=== PATIENT | female | born 1980 | race Caucasian/White ===

== ENCOUNTER → 2017-03-12 | Outpatient (REF) | payer OTHER | LOC: M LAB REF 09:14 | PROVIDERS: ATTEND Physician Assistant | DX: R30.0 Dysuria (principal) ==

== ENCOUNTER → 2018-05-08 | Outpatient (CLI) | payer OTHER | LOC: M RAD 16:29 | DX: R10.32 Left lower quadrant pain (principal) | CPT/HCPCS: 76856 ==

== ENCOUNTER 2019-03-29 15:00 | Emergency (ER) | payer OTHER ==
[~2019-03-29] VITALS: Ht 157.5 cm; Wt 70.0 kg
[2019-03-29] MEDS ORDERED: LISI10TA4 PO (15:11)
[2019-03-29] MEDS ORDERED: XANA0.5T PO (15:11)
[2019-03-29] MEDS ORDERED: PANT40TA3 PO (15:11)
[2019-03-29 15:35] LABS: BASO % 0.5 % (0.0-1.0); EOS % 0.7 % (0.0-3.0); HEMATOCRIT 39.9 % (36.0-47.0); HEMOGLOBIN 13.7 g/dl (12.0-15.5); LYMPH # 1.4 10^3/uL (1.5-4.5); LYMPH % 22.4 % (24.0-44.0); MEAN CORPUSCULAR HEMOGLOBIN 33.3 pg (27.0-33.0); MEAN CORPUSCULAR HGB CONC 34.3 g/dl (32.0-36.5); MEAN CORPUSCULAR VOLUME 96.8 fl (80.0-96.0); MONO # 0.4 10^3/uL (0.0-0.8); MONO % 6.5 % (0.0-5.0); NEUTROPHILS # 4.2 10^3/uL (1.8-7.7); NEUTROPHILS % 69.7 % (36.0-66.0); PLATELET COUNT, AUTOMATED 152 10^3/uL (150-450); RED BLOOD COUNT 4.12 10^6/uL (4.00-5.40)
[2019-03-29 16:01] LABS: HCG, SERUM QUALITATIVE NEGATIVE (NEGATIVE)
[2019-03-29 16:03] LABS: ALBUMIN 4.1 GM/DL (3.2-5.2); ALT/SGPT 35 U/L (12-78); BILIRUBIN,DIRECT 0.2 MG/DL (0.0-0.2); BILIRUBIN,TOTAL 0.7 MG/DL (0.2-1.0); BLOOD UREA NITROGEN 13 MG/DL (7-18); CALCIUM LEVEL 8.8 MG/DL (8.5-10.1); CARBON DIOXIDE LEVEL 25 MEQ/L (21-32); CHLORIDE LEVEL 106 MEQ/L (98-107); CREATININE FOR GFR 0.79 MG/DL (0.55-1.30); GLOMERULAR FILTRATION RATE > 60.0 (>60); GLUCOSE, FASTING 103 MG/DL (70-100); LIPASE 70 U/L (73-393); POTASSIUM SERUM 3.6 MEQ/L (3.5-5.1); SODIUM LEVEL 140 MEQ/L (136-145); TOTAL PROTEIN 7.1 GM/DL (6.4-8.2)
--- NOTE | 2019-03-29 16:43 | REP ---
Chest x-ray: Two views. History: Palpitations . Comparison study: August 24, 2015 . Findings: The lungs are well inflated and free of infiltrate. The pleural angles are sharp. The heart size is normal. Pulmonary vasculature is not increased. No significant bony abnormality is seen. EKG monitoring electrodes are seen. Impression: Negative chest x-ray. Electronically Signed by Herman Persaud MD 03/29/2019 04:35 P
[2019-03-29] MEDS ORDERED: 24Hr Holter Monitor XX (16:59)
[2019-03-29 17:00] VITALS: BP 125/71
--- NOTE | 2019-03-29 17:18 | ECGEPIP ---
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
== END 2019-03-29 17:20 | disposition home or self-care (01) ==
LOC: M ED 15:00
DX: R00.2 Palpitations (principal); K21.9 Gastro-esophageal reflux disease without esophagitis; F41.9 Anxiety disorder, unspecified; I10 Essential (primary) hypertension; Z79.899 Other long term (current) drug therapy

== ENCOUNTER → 2019-03-31 | Outpatient (CLI) | payer OTHER ==
[~2019-03-31] MED LIST: 24Hr Holter Monitor XX; LISI10TA4 PO; PANT40TA3 PO; XANA0.5T PO
--- NOTE | 2019-04-04 18:43 | HOLTMON ---
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 22 HOURS AND 30 MINUTES WERE USABLE FOR ANALYSIS. BASELINE MECHANISM WAS SR WITH NORMAL AV CONDUCTION AND NARROW QRS COMPLEX. MINIMUM HR WAS 50 BPM, AVERAGE HR 79 BPM AND MAXIMUM HR 140 BPM. THERE WERE NO PAUSES, NO EPISODES OF ATRIAL FIBRILLATION AND NO PVC'S. VERY RARE PAC'S INCLUDING BRIEF RUNS OF SLOW ATRIAL RHYTHM WERE SEEN (MAX. 6 BEATS). PATIENT REPORTED 3 EPISODES OF PALPITATIONS ALL CORRESPONDING TO SINUS RHYTHM. NORMAL HOLTER MONITOR. NO CORRELATION OF SYMPTOMS WITH ARRHYTHMIAS. Electronically Signed On 04-04-2019 18:43:51 EDT by Radha Hillman
== END ==
LOC: M EKG 13:19
PROVIDERS: ATTEND Emergency Medicine
DX: R00.2 Palpitations (principal)

== ENCOUNTER → 2019-05-28 | Outpatient (REF) | payer OTHER ==
[~2019-05-28] MED LIST changes: +LOW-1TAB2 PO
[2019-05-31 00:07] LABS: HPV HYBRID CAPTURE II Negative (Negative)
== END ==
LOC: M SFHCWAGY 15:29
PROVIDERS: ATTEND Nurse Practitioner Women's Health
DX: Z12.4 Encounter for screening for malignant neoplasm of cervix (principal); Z11.4 Encounter for screening for human immunodeficiency virus [HIV]

== ENCOUNTER 2019-08-04 13:01 | Day surgery (SDC) | payer OTHER ==
[~2019-08-04] VITALS: Ht 154.9 cm; Wt 68.0 kg
[~2019-08-04 13:01] MED LIST changes: +NS 1,000 ML IV ONE; +RANI150T PO
[2019-08-04] MEDS ORDERED: LIDOCAINE 2% INJ 100 MG/5 ML SDV (FOR ANES.) As Ordered ONE (14:22)
[2019-08-04] MEDS ORDERED: PROPOFOL 200 MG/20 ML VIAL As Ordered ONE (14:22)
--- NOTE | 2019-08-04 15:51 | ROOR ---
Patient Name: Lidia Watters Procedure Date: 08/04/2019 3:28 PM Date of : 1980 Age: 39 Room: [facility] Gender: Female Note Status: Finalized Procedure: Upper GI endoscopy Indications: Suspected gastro-esophageal reflux disease, Chest pain (non cardiac) Providers: Aneesh Torrez MD Referring MD: Michelle ARREAGA DO Requesting Provider: Medicines: Monitored Anesthesia Care Complications: No immediate complications. Procedure: Pre-Anesthesia Assessment: - Prior to the procedure, a History and Physical was performed, and patient medications and allergies were reviewed. The patient is competent. The risks and benefits of the procedure and the sedation options and risks were discussed with the patient. All questions were answered and informed consent was obtained. Patient identification and proposed procedure were verified by the physician, the nurse and the anesthesiologist in the procedure room. Mental Status Examination: alert and oriented. Airway Examination: normal oropharyngeal airway and neck mobility. Respiratory Examination: clear to auscultation. CV Examination: normal. Prophylactic Antibiotics: The patient does not require prophylactic antibiotics. Prior Anticoagulants: The patient has taken no previous anticoagulant or antiplatelet agents. ASA Grade Assessment: II - A patient with mild systemic disease. After reviewing the risks and benefits, the patient was deemed in satisfactory condition to undergo the procedure. The anesthesia plan was to use monitored anesthesia care (MAC). Immediately prior to administration of medications, the patient was re-assessed for adequacy to receive sedatives. The heart rate, respiratory rate, oxygen saturations, blood pressure, adequacy of pulmonary ventilation, and response to care were monitored throughout the procedure. The physical status of the patient was re-assessed after the procedure. The Endoscope was introduced through the mouth, and advanced to the second part of duodenum. The upper GI endoscopy was accomplished without difficulty. The patient tolerated the procedure well. Findings: The Z-line was irregular and was found 37 cm from the incisors. Biopsies were taken with a cold forceps for histology. Verification of patient identification for the specimen was done by the physician and nurse using the patient's name, date and medical record number. Estimated blood loss was minimal. There is no endoscopic evidence of esophagitis, inflammation or ulcerations in the entire esophagus. The [place] GARZA capsule with delivery system was introduced through the mouth and advanced into the esophagus, such that the [place]ZA pH capsule was positioned 31 cm from the incisors, which was 6 cm proximal to the GE junction. Suction was applied to the well of the [place] G[place]ZA pH capsule to suck in the adjacent mucosa of the esophagus using the external vacuum pump set at a minimum vacuum pressure of 550 mmHg for 30 seconds. The [place]ZA pH capsule was then deployed by depressing the plunger on top of the handle to advance the locking pin into the mucosa, thereby attaching the capsule to the esophagus. The plunger was then rotated a quarter turn clockwise to release the capsule from the delivery system. The delivery system was then withdrawn. Endoscopy was utilized for probe placement and diagnostic evaluation. The scope was reinserted to evaluate placement of the [place] capsule. Visualization showed the [place] GARZA capsule to be in an appropriate position. Scattered minimal inflammation characterized by erythema and granularity was found in the gastric antrum. Biopsies were taken with a cold forceps for Helicobacter pylori testing. The duodenal bulb and second portion of the duodenum were normal. Impression: - Z-line irregular, 37 cm from the incisors. Biopsied. - Gastritis. Biopsied. - Normal duodenal bulb and second portion of the duodenum. - The [place] GARZA pH capsule was positioned 31 cm from the incisors, which was 6 cm proximal to the GE junction. Recommendation: - Patient has a contact number available for emergencies. The signs and symptoms of potential delayed complications were discussed with the patient. Return to normal activities tomorrow. Written discharge instructions were provided to the patient. - Resume previous diet. - Await pathology results. - Follow an antireflux regimen. - Telephone GI clinic for study results in 2 weeks. - Return to primary care physician. Aneesh Torrez MD Aneesh Torrez MD 08/04/2019 3:51:18 PM Electronically signed by Aneesh Torrez MD Number of Addenda: 0 Note Initiated On: 08/04/2019 3:28 PM Estimated Blood Loss: Estimated blood loss was minimal.
[2019-08-04 16:10] VITALS: BP 126/76
== END 2019-08-04 16:32 | disposition home or self-care (01) ==
LOC: M OPP 13:01
PROVIDERS: ATTEND Internal Medicine Gastroenterology
DX: K22.8 Other specified diseases of esophagus (principal); K29.70 Gastritis, unspecified, without bleeding; R07.89 Other chest pain; Z79.899 Other long term (current) drug therapy

== ENCOUNTER → 2019-12-29 | Outpatient (REF) | payer OTHER ==
[~2019-12-29] MED LIST changes: -NS 1,000 ML IV ONE
[2019-12-29 15:29] LABS: BASO % 0.3 % (0.0-1.0); EOS # 0.1 10^3/uL (0.0-0.5); EOS % 0.9 % (0.0-3.0); HEMATOCRIT 42.9 % (36.0-47.0); HEMOGLOBIN 13.8 g/dl (12.0-15.5); LYMPH # 1.5 10^3/uL (1.5-5.0); LYMPH % 22.9 % (24.0-44.0); MEAN CORPUSCULAR HEMOGLOBIN 29.6 pg (27.0-33.0); MEAN CORPUSCULAR HGB CONC 32.2 g/dl (32.0-36.5); MEAN CORPUSCULAR VOLUME 91.9 fl (80.0-96.0); MONO # 0.4 10^3/uL (0.0-0.8); MONO % 5.3 % (0.0-5.0); NEUTROPHILS # 4.6 10^3/uL (1.5-8.5); NEUTROPHILS % 70.3 % (36.0-66.0); PLATELET COUNT, AUTOMATED 204 10^3/uL (150-450); RED BLOOD COUNT 4.67 10^6/uL (4.00-5.40); WHITE BLOOD COUNT 6.6 10^3/uL (4.0-10.0)
[2019-12-29 16:03] LABS: ALBUMIN 4.1 GM/DL (3.2-5.2); ALT/SGPT 20 U/L (12-78); BILIRUBIN,DIRECT 0.1 MG/DL (0.0-0.2); BILIRUBIN,TOTAL 0.5 MG/DL (0.2-1.0); BLOOD UREA NITROGEN 11 MG/DL (7-18); CALCIUM LEVEL 9.6 MG/DL (8.5-10.1); CARBON DIOXIDE LEVEL 30 MEQ/L (21-32); CHLORIDE LEVEL 100 MEQ/L (98-107); CREATININE FOR GFR 0.73 MG/DL (0.55-1.30); GLOMERULAR FILTRATION RATE > 60.0 (>60); GLUCOSE, FASTING 79 MG/DL (70-100); LIPASE 55 U/L (73-393); POTASSIUM SERUM 4.4 MEQ/L (3.5-5.1); SODIUM LEVEL 137 MEQ/L (136-145); TOTAL PROTEIN 7.4 GM/DL (6.4-8.2)
== END ==
LOC: M LABDRAW1 13:49
PROVIDERS: ATTEND Physician Assistant
DX: A08.39 Other viral enteritis (principal)

== ENCOUNTER → 2020-04-28 | Outpatient (CLI) | payer OTHER ==
--- NOTE | 2020-04-28 14:40 | REP ---
MRI brain: April 28, 2020. Indication: Headache. Technique: Multiplanar short and long TR sequences of the brain were performed without IV Gadolinium. Comparison: 08/18/2013. Findings: There are no areas of restricted diffusion. There is no intracranial mass effect or hydrocephalous. The large intracranial flow voids are present and unremarkable. The punctate foci of elevated T2 signal within the frontal lobes remain stable. There is no significant fluid within the paranasal sinuses or mastoid air cells. Impression: No acute intracranial process. Stable punctate nonspecific foci of elevated frontal lobe white matter T2 signal. Considering history, these likely represent sequelae of migraines. Electronically Signed by Darrin Patterson DO 04/28/2020 02:31 P
--- NOTE | 2020-04-28 14:53 | REP ---
Intracranial MRA: 04/28/2020. Indication: Headaches. Technique: 3-D [id number] imaging of the intracranial vessels were performed. Comparison: None. Findings: There is no intracranial aneurysm, AVM, high-grade stenosis or additional intracranial vascular abnormalities. Incidental note is made of an anatomic variant involving the origin of the right ACCESS NURSE. Impression: Unremarkable intracranial MRA. Electronically Signed by Darrin Patterson DO 04/28/2020 02:44 P
== END ==
LOC: M RAD 12:26
PROVIDERS: ATTEND Physician Assistant
DX: R51 Headache (principal)

== ENCOUNTER → 2020-12-13 | Outpatient (CLI) | payer OTHER ==
[~2020-12-13] MED LIST changes: +LISI10TA22 PO; -LISI10TA4 PO; +PANT40TA29 PO; -PANT40TA3 PO
[2020-12-13 12:28] LABS: BASO % 0.5 % (0.0-1.0); EOS # 0.1 10^3/uL (0.0-0.5); EOS % 1.3 % (0.0-3.0); HEMATOCRIT 41.3 % (36.0-47.0); HEMOGLOBIN 13.8 g/dl (12.0-15.5); LYMPH # 1.7 10^3/uL (1.5-5.0); LYMPH % 30.5 % (24.0-44.0); MEAN CORPUSCULAR HEMOGLOBIN 30.5 pg (27.0-33.0); MEAN CORPUSCULAR HGB CONC 33.4 g/dl (32.0-36.5); MEAN CORPUSCULAR VOLUME 91.2 fl (80.0-96.0); MONO # 0.3 10^3/uL (0.0-0.8); MONO % 6.1 % (0.0-5.0); NEUTROPHILS # 3.4 10^3/uL (1.5-8.5); NEUTROPHILS % 61.4 % (36.0-66.0); PLATELET COUNT, AUTOMATED 199 10^3/uL (150-450); RED BLOOD COUNT 4.53 10^6/uL (4.00-5.40); WHITE BLOOD COUNT 5.6 10^3/uL (4.0-10.0)
[2020-12-13 12:53] LABS: ALBUMIN 4.2 GM/DL (3.2-5.2); ALT/SGPT 20 U/L (12-78); BILIRUBIN,DIRECT < 0.1 MG/DL (0.0-0.2); BILIRUBIN,TOTAL 0.3 MG/DL (0.2-1.0); BLOOD UREA NITROGEN 11 MG/DL (7-18); CREATININE FOR GFR 0.68 MG/DL (0.55-1.30); GLOMERULAR FILTRATION RATE > 60.0 (>60); TOTAL PROTEIN 7.4 GM/DL (6.4-8.2)
== END ==
LOC: M LAB 11:48
PROVIDERS: ATTEND Internal Medicine Gastroenterology
DX: R10.13 Epigastric pain (principal)

== ENCOUNTER → 2020-12-27 | Outpatient (CLI) | payer OTHER ==
--- NOTE | 2020-12-27 14:13 | REP ---
INDICATION: EPIGASTRIC PAIN COMPARISON: 02/08/2015 TECHNIQUE: Real time hill scale ultrasound examination using curved array transducer. FINDINGS: Liver is normal in contour, size, and echogenicity without focal hepatic lesions identified. Pancreas is incompletely evaluated due to interposed bowel gas. The gallbladder is normal and without gallstones, wall thickening, or pericholecystic fluid. No biliary ductal dilatation is appreciated and the common bile duct measures 4.6 mm diameter. Right kidney is normal in reniform shape without hydronephrosis and measures 11.1 x 4.1 x 3.5 cm cm. No ascites in the visualized right upper quadrant. IMPRESSION: Normal limited right upper quadrant ultrasound <Electronically signed by Gabriel Magana > 12/27/20 [id number]
== END ==
LOC: M RAD 08:02
PROVIDERS: ATTEND Internal Medicine Gastroenterology
DX: R10.13 Epigastric pain (principal)

== ENCOUNTER → 2020-12-29 | Outpatient (CLI) | payer OTHER | LOC: M LABSMTC 10:00 | PROVIDERS: ATTEND Anesthesiology | DX: Z20.828 Contact with and (suspected) exposure to other viral communicable diseases (principal) ==

== ENCOUNTER 2021-01-03 09:59 | Day surgery (SDC) | payer OTHER ==
[~2021-01-03] VITALS: Ht 154.9 cm; Wt 72.5 kg
[~2021-01-03 09:59] MED LIST changes: +NS 1,000 ML IV ONE
--- OUTSIDE RECORDS SUMMARY | 2021-01-03 10:02 | CCD | Continuity of Care Document ---
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 AUTM Shea Vergara NP AUTM [phone] Jose D Ruiz MD AUTM [phone] Problems Active Problems Provider Date Gastro-esophageal reflux disease with esophagitis LOYDA Georges Onset: 08/18/2019 Essential hypertension LOYDA Lira Onset: 08/18/2019 Generalized anxiety disorder LOYDA Lira Onset: 07/22 Social History Type Date Description Comments Sex Unknown ETOH Use Denies alcohol use Tobacco Use Start: Unknown End: Patient is a former smoker Recreational Drug Use Denies Drug Use Sun Exposure Uses sunscreen Seat Belt/Car Seat Always uses seat belt Allergies, Adverse Reactions, Alerts Description No Known Drug Allergies Medications Active Medications SIG Qnty Indications Ordering Provide r Date Lisinopril 10mg Tablets take one tablet by mouth every day 90tabs Michelle Roberto D.O. 09/17 Blood Pressure Monitor Auto Inflate Misc use as directed 1units I10 Eric Miller 09/06/[address] 1 by mouth every day 90caps K21.00 Michelle Roberto D.O. 09/06 Betamethasone Dipropionate 0.05% C ream apply liquid to clean, dry, on scalp in the morning for 10 days and as needed for flares 45gm L20.84 Michelle Roberto D.O. 08/03 Nystatin 424621Nowp/GM Powder apply to chest area twice a day until rash resolves 60gm Dulce Maria MillerOTejas 06/23/2020 Triamcinolone Acetonide 0.1% Cream apply least effective dosage to affected area of chest twice a day 80gm Dulce Maria MillerOTejas 06/07/2020 Carafate 1gm Tablets one tablet by mouth every 8 hours 90tabs K21.0 Dulce Maria MillerO. 06/01 Zofran 4mg Tablets 1-2 tablets by mouth every 6 hours as needed for nausea 45tabs A08.39 Sarahy Cartagena.O. 12/29/2019 Alprazolam 0.25mg Tablets take one tablet by mouth twice a day istop # [id number] 60tabs F41.1 Sarahy Soler.O. Low-Ogestrel 0.3-30mg-mcg Tablets Take One Tablet By Mouth Every Day Unknown History Medications Labetalol HCL 100mg Tablets take one tablet by mouth twice a day 180tabs I10 Sarahy Miller.O. 09/13/2020 - 09/17/2020 Immunizations Description No Information Available Vital Signs Date Vital Result Comment 09/13/2020 11:24am BP Systolic 132 mmHg BP Diastolic 82 mmHg Height 60.8 inches 5'0.80" Weight 163.00 lb BMI (Body Mass Index) 31.0 kg/m2 Heart Rate 76 /min Respiratory Rate 16 /min Body Temperature 98.5 F O2 % BldC Oximetry 98 % [place] Body Weight 100 lb 09/06/2020 1:10pm BP Systolic 115 mmHg BP Diastolic 70 mmHg Height 60.8 inches 5'0.80" Weight 163.50 lb BMI (Body Mass Index) 31.1 kg/m2 Heart Rate 86 /min Respiratory Rate 16 /min Body Temperature 98.3 F O2 % BldC Oximetry 99 % [place] Body Weight 100 lb Results Test Acquired Date Facility Test Result H/L Range Note CBC With Differential 12/13/2020 [facility] Outpatient Oneyda jeffers (Registration) [address] [place] [address] [phone] White Blood Count 5.6 10 Normal 4.0-10.0 Red Blood Count 4.53 10 Normal 4.00-5.40 Hemoglobin 13.8 g/dL Normal 12.0-15.5 Hematocrit 41.3 % Normal 36.0-47.0 Mean Corpuscular Volume 91.2 fl Normal 80.0-96.0 Mean Corpuscular Hemoglobin 30.5 pg Normal 27.0-33.0 Mean Corpuscular HGB Conc 33.4 g/dL Normal 32.0-36.5 Red Cell Distribution Width 12.2 % Normal 11.5-14.5 Platelet Count, Automated 199 10 Normal 150-450 Neutrophils % 61.4 % Normal 36.0-66.0 Lymph % 30.5 % Normal 24.0-44.0 [place] % 6.1 % High 0.0-5.0 Eos % 1.3 % Normal 0.0-3.0 Baso % 0.5 % Normal 0.0-1.0 Immature Granulocyte % 0.2 % Normal 0-3.0 Nucleated Red Blood Cell % 0.0 % Normal 0-0 Neutrophils # 3.4 10 Normal 1.5-8.5 Lymph # 1.7 10 Normal 1.5-5.0 [place] # 0.3 10 Normal 0.0-0.8 Eos # 0.1 10 Normal 0.0-0.5 Baso # 0.0 10 Normal 0.0-0.2 Liver Profile 12/13/2020 [facility] Outpatient Testi ng (Registration) [address] [place] [address] [phone] Ast/Sgot 8 U/L Normal 7-37 Alt/SGPT 20 U/L Normal 12-78 Alkaline Phosphatase 53 U/L Normal 45-117 Bilirubin,Total 0.3 mg/dL Normal 0.2-1.0 Bilirubin,Direct < 0.1 mg/dL Normal 0.0-0.2 Total Protein 7.4 GM/DL Normal 6.4-8.2 Albumin 4.2 GM/DL Normal 3.2-5.2 Albumin/Globulin Ratio 1.3 Normal 1.2-2.2 Laboratory test finding 12/13/2020 [facility] Outpatient T est[place] (Registration) [address] [place] [address] [phone] Blood Urea Nitrogen 11 mg/dL Normal 7-18 Creatinine With GFR 12/13/2020 [facility] Outpatient Testi ng (Registration) [address] [place], [place] [id number] [phone] Creatinine For GFR 0.68 mg/dL Normal 0.55-1.30 Glomerular Filtration Rate > 60.0 Normal >60 1 Laboratory test finding 12/13/2020 [facility] Outpatient [place] (Registration) [address] [place], [place] [id number] [phone] Tissue Transglutaminase IgA <2 U/mL Normal 0-3 2 Order 09/06/2020 In House Orders EKG see result in chart 1 Units are mL/min/1.73 m2 Chronic Kidney Disease Staging per NKF: Stage I & II GFR >=60 Normal to Mildly Decreased Stage III GFR 30-59 Moderately Decreased Stage IV GFR 15-29 Severely Decreased Stage V GFR <15 Very Little GFR Left ESRD GFR <15 on PHOTOGRAPHY SPOTTER 2 Negative 0 - 3 Weak Positive 4 - 10 Positive >10 . Tissue Transglutaminase (tTG) has been identified as the endomysial antigen. Studies have demonstr- ated that endomysial IgA antibodies have over 99% specificity for gluten sensitive enteropathy. Performed at: RN - [facility] [address] [id number] Surgical Assistant Certified: Jessica Lamar MD, Phone: [phone] Procedures Date Code Description Status 09/13/2020 11979 Wearable ECG Monitor/Report W/Vi sual Superimposition Scanning Completed 09/06/2020 86347 Electrocardiogram Complete Compl eted Medical Devices Description No Information Available Encounters Type Date Location Provider Dx Diagnosis Office Visit 09/13/2020 11:30a [facility] LOYDA Lira I10 Essential (primary) hyperten mansoor K21.00 Gastro-esophageal reflux dis with esophagitis, without bleed R00.0 Tachycardia, unspecified Office Visit 09/06/2020 1:15p [facility] LOYDA Lira R00.2 Palpitations I10 Essential (primary) hyperten mansoor K21.00 Gastro-esophageal reflux dis with esophagitis, without bleed F41.1 Generalized anxiety disorder Z79.899 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 burgos therapy Assessments Date Code Description Provider 09/13/2020 I10 Essential (primary) hypertension LOYDA Lira 09/13/2020 K21.00 Gastro-esophageal re flux disease with esophagitis, without bleeding LOYDA Lira 09/13/2020 R00.0 Tachycardia, unspecified LOYDA Lira 09/06/2020 R00.2 Palpitations LOYDA Lira 09/06/2020 I10 Essential (primary) hypertension LOYDA Lira 09/06/2020 K21.00 Gastro-esophageal re flux disease with esophagitis, without bleeding LOYDA Lira 09/06/2020 F41.1 Generalized anxiety disorder [facility] LOYDA Ingram 09/06/2020 Z79.899 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ug t herapy LOYDA Lira Plan of Treatment No Information Available Functional Status Description No Information Available Mental Status Description No Information Available Referrals Refer to Reason for Referral Status Appt Date Jose D Ruiz MD dry flaky psoriasis rash of scalp with difficulty getting appropriate medications approved. Please help in evaluation and treatment of this patient. Sent [address] [id number] [phone]
--- OUTSIDE RECORDS SUMMARY | 2021-01-03 10:03 | CCD ---
Author Author [facility] Organization [facility] Address Unknown Phone Unavailable Care Team Providers Care Street Sprinkler Name Role Phone Ann'jake, Cuate Cory PA Unavailable Unavailable O'jake, A Cory PA Unavailable Unavailable O'jake, A Cory PA Unavailable Unavailable O'jake, A Cory PA Unavailable Unavailable O'jake, A Cory PA Unavailable Unavailable O'jake, A Cory PA Unavailable Unavailable O'jake, A Cory PA Unavailable Unavailable O'jake, A Cory PA Unavailable Unavailable O'jake, A Cory PA Unavailable Unavailable O'jake, A Cory PA Unavailable Unavailable O'jake, A Cory PA Unavailable Unavailable O'jake, A Cory PA Unavailable Unavailable O'jake, A Cory PA Unavailable Unavailable O'jake, A Cory PA Unavailable Unavailable O'jake, A Cory PA Unavailable Unavailable O'jake, A Cory PA Unavailable Unavailable O'jake, A Cory PA Unavailable Unavailable O'jake, A Cory PA Unavailable Unavailable O'jake, A Cory PA Unavailable Unavailable O'jake, A Cory PA Unavailable Unavailable O'jake, A Cory PA Unavailable Unavailable O'jake, A Cory PA Unavailable Unavailable O'jake, A Cory PA Unavailable Unavailable O'jake, A Cory PA Unavailable Unavailable O', A Cory PA Unavailable Unavailable O', A Cory PA Unavailable Unavailable O', A Cory PA Unavailable Unavailable O', A Cory PA Unavailable Unavailable O', A Cory PA Unavailable Unavailable O, A Cory PA Unavailable Unavailable O', A Cory PA Unavailable Unavailable O', A Cory PA Unavailable Unavailable O', A Cory PA Unavailable Unavailable O', A Cory PA Unavailable Unavailable O', A Cory PA Unavailable Unavailable O', A Cory PA Unavailable Unavailable O', A Cory PA Unavailable Unavailable O', A Cory PA Unavailable Unavailable O', A Cory PA Unavailable Unavailable O', A Cory PA Unavailable Unavailable O, A Cory PA Unavailable Unavailable O, A Cory PA Unavailable Unavailable O, A Cory PA Unavailable Unavailable O, A Cory PA Unavailable Unavailable O, A Cory PA Unavailable Unavailable O, A Cory PA Unavailable Unavailable O, A Cory PA Unavailable Unavailable O, A Cory PA Unavailable Unavailable O, A Cory PA Unavailable Unavailable O, A Cory PA Unavailable Unavailable O', A Cory PA Unavailable Unavailable O, A Cory PA Unavailable Unavailable O, A Cory PA Unavailable Unavailable , A Cory PA Unavailable Unavailable O, A Cory PA Unavailable Unavailable O, A Cory PA Unavailable Unavailable O, A Cory PA Unavailable Unavailable O, A Cory PA Unavailable Unavailable O, A Cory PA Unavailable Unavailable O, A Cory PA Unavailable Unavailable O, A Cory PA Unavailable Unavailable O, A Cory PA Unavailable Unavailable O, A Cory PA Unavailable Unavailable O', A Cory PA Unavailable Unavailable O', A Cory PA Unavailable Unavailable O', A Cory PA Unavailable Unavailable Re-disclosure Warning The records that you are about to access may contain information from federally-assisted alcohol or drug abuse programs. If such information is present, then the following federally mandated warning applies: This information has been disclosed to you from records protected by federal confidentiality rules (42 CFR part 2). The federal rules prohibit you from making any further disclosure of this information unless further disclosure is expressly permitted by the written consent of the person to whom it pertains or as otherwise permitted by 42 CFR part 2. A general authorization for the release of medical or other information is NOT sufficient for this purpose. The Federal rules restrict any use of the information to criminally investigate or prosecute any alcohol or drug abuse patient.The records that you are about to access may contain highly sensitive health information, the redisclosure of which is protected by Article 27-F of the [facility] Public Health law. If you continue you may have access to information: Regarding HIV / AIDS; Provided by facilities licensed or operated by the [facility] Office of Mental Health; or Provided by the [facility] Office for People With Developmental Disabilities. If such information is present, then the following [facility] mandated warning applies: This information has been disclosed to you from confidential records which are protected by state law. State law prohibits you from making any further disclosure of this information without the specific written consent of the person to whom it pertains, or as otherwise permitted by law. Any unauthorized further disclosure in violation of state law may result in a fine or chcf sentence or both. A general authorization for the release of medical or other information is NOT sufficient authorization for further disc losure. Family History Family Member Name Family Member Gender Family Member Status Date o f Status Description Data Source(s) Unknown Male Problem [facility] ([facility] Unknown Female Problem [facility] ([facility] Unknown Female Problem [facility] ([facility], [facility]) Encounters Encounter Providers Location Date Indications Data Source(s ) Outpatient Attender: Cory SCALES [facility] 09/13/2020 11:30:00 AM EDT [facility] ([facility]) Outpatient Attender: Cory SCALES [facility] 09/06/2020 01:15:00 PM EDT [facility] ([facility]) Outpatient [address] [facility] [address] 08/23/2020 12:00:00 AM EDT eCW1 ([facility]) Outpatient Attender: Cory SCALES [facility] 06/01/2020 02:30:00 PM EDT [facility] ([facility]) Unknown [address] [facility] [address] 05/31/2020 12:00:00 AM EDT eCW1 ([facility]) Outpatient Referrer: Cory SCALES 05/14/2020 05:16:0 0 AM EDT [facility] Radiology Imaging Outpatient Attender: Cory SCALES [facility] 04/07/2020 04:00:00 PM EDT [facility] ([facility]) Outpatient Attender: Cory SCALES [facility] 12/29/2019 12:20:00 PM EST [facility] ([facility]) Outpatient Attender: Cory SCALES [facility] 12/16/2019 12:20:00 PM EST [facility] ([facility]) Outpatient Attender: Cory SCALES [facility] 11/24/2019 12:30:00 PM EST [facility] ([facility]) Medications Medication Brand Name Start Date Product Form Dose Route Admi nistrative Instructions Pharmacy Instructions Status Indications Reaction Description Data Source(s) 420 gram 12/22/2020 12:00:00 AM EST recon soln 4000 DIRECTED PER PREP INSTRUCTIONS DIRECTED PER PREP INSTRUCTIONS SOLD: 12/25/2020 [facility] Alprazolam 0.25 MG Oral Tablet ALPRAZOLAM 12/03/2020 12:00:00 AM EST tablet 60 TAKE ONE TABLET BY MOUTH TWICE A DAY MAXIMUM DAILY DOS E = 2 TABLETS TAKE ONE TABLET BY MOUTH TWICE A DAY MAXIMUM DAILY DOSE = 2 TABLETS SOLD: 12/05/2020 [facility] Lisinopril 10 MG Oral Tablet Lisinopril 09/17/2020 12:00:00 AM EDT ORAL active [facility] ([facility]) 10 mg 09/17/2020 12:00:00 AM EDT tablet 30 TAKE ONE TABLET BY MOUTH EVERY DAY TAKE ONE TABLET BY MOUTH EVERY DAY SOLD: 12/16/2020 [facility] 10 mg 09/17/2020 12:00:00 AM EDT tablet 30 TAKE ONE TABLET BY MOUTH EVERY DAY TAKE ONE TABLET BY MOUTH EVERY DAY SOLD: 11/17/2020 [facility] 10 mg 09/17/2020 12:00:00 AM EDT tablet 30 TAKE ONE TABLET BY MOUTH EVERY DAY TAKE ONE TABLET BY MOUTH EVERY DAY SOLD: 10/15/2020 [facility] 10 mg 09/17/2020 12:00:00 AM EDT tablet 30 TAKE ONE TABLET BY MOUTH EVERY DAY TAKE ONE TABLET BY MOUTH EVERY DAY SOLD: 09/18/2020 [facility] Labetalol hydrochloride 100 MG Oral Tablet Labetalol HCL 09/13/2020 12:00:00 AM EDT ORAL completed [facility] ([facility]) 100 mg 09/13/2020 12:00:00 AM EDT tablet 60 TAKE ONE TABLET BY MOUTH TWICE A DAY TAKE ONE TABLET BY MOUTH TWICE A DAY SOLD: 09/16/2020 [facility] 60 mg 09/10/2020 12:00:00 AM EDT capsule,biphase delayed releas 30 TAKE ONE CAPSULE BY MOUTH EVERY DAY TAKE ONE CAPSULE BY MOUTH EVERY DAY SOLD: 09/11/2020 [facility] Blood Pressure Monitor Auto Inflate 09/06/2020 12:00:00 AM EDT active [facility] ([facility]) dexlansoprazole 60 MG Delayed Release Oral Capsule [Dexilant ] Dexilant 09/06/2020 12:00:00 AM EDT ORAL active [facility] ([facility]) Alprazolam 0.25 MG Oral Tablet ALPRAZOLAM 09/03/2020 12:00:00 AM EDT tablet 40 TAKE ONE TABLET BY MOUTH TWICE A DAY MAXIMUM DAILY DOS E = 2 TABLETS TAKE ONE TABLET BY MOUTH TWICE A DAY MAXIMUM DAILY DOSE = 2 TABLETS SOLD: 09/04/2020 [facility] 0.3-30 mg-mcg 08/24/2020 12:00:00 AM EDT tablet 84 TAKE ONE TABLET BY MOUTH EVERY DAY TAKE ONE TABLET BY MOUTH EVERY DAY SOLD: 11/30/2020 [facility] 0.3-30 mg-mcg 08/24/2020 12:00:00 AM EDT tablet 84 TAKE ONE TABLET BY MOUTH EVERY DAY TAKE ONE TABLET BY MOUTH EVERY DAY SOLD: 08/25/2020 [facility] Betamethasone 0.5 MG/ML Topical Cream Betamethasone Dipropio bonnie 08/03/2020 12:00:00 AM EDT active EDENT ([facility]) 0.05 % 07/24/2020 12:00:00 AM EDT solution 25 APPLY LIQUID TO CLEAN, DRY, ON SCALP IN THE MORNING FOR 10 DAYS AND NEDED FOR FLARES APPLY LIQUID TO CLEAN, DRY, ON SCALP IN THE MORNING FOR 10 DAYS AND NEDED FOR FLARES SOLD: 11/17/2020 [email or web address] 0.05 % 07/24/2020 12:00:00 AM EDT solution 25 APPLY LIQUID TO CLEAN, DRY, ON SCALP IN THE MORNING FOR 10 DAYS AND NEDED FOR FLARES APPLY LIQUID TO CLEAN, DRY, ON SCALP IN THE MORNING FOR 10 DAYS AND NEDED FOR FLARES SOLD: 01/02/2021 [email or web address] Clobetasol Propionate 0.5 MG/ML Topical Solution 0.05 % CLOB ETASOL PROPIONATE 07/24/2020 12:00:00 AM EDT solution 25 APPLY LIQUID TO CLEAN, DRY, ON SCALP IN THE MORNING FOR 10 DAYS AND NEDED FOR FLARES APPLY LIQUID TO CLEAN, DRY, ON SCALP IN THE MORNING FOR 10 DAYS AND NEDED FOR FLARES SOLD: 10/15/2020 [email or web address] 0.05 % 07/24/2020 12:00:00 AM EDT solution 25 APPLY LIQUID TO CLEAN, DRY, ON SCALP IN THE MORNING FOR 10 DAYS AND NEDED FOR FLARES APPLY LIQUID TO CLEAN, DRY, ON SCALP IN THE MORNING FOR 10 DAYS AND NEDED FOR FLARES SOLD: 07/26/2020 [email or web address] Alprazolam 0.25 MG Oral Tablet ALPRAZOLAM 07/20/2020 12:00:00 AM EDT tablet 40 TAKE ONE TABLET BY MOUTH TWICE A DAY MAXIMUM DAILY DOS E = 2 TAKE ONE TABLET BY MOUTH TWICE A DAY MAXIMUM DAILY DOSE = 2 SOLD: 07/22/2020 [facility] Nystatin 100 UNT/MG Topical Powder 100,000 unit/gram [facility] 06/23/2020 12:00:00 AM EDT powder 15 APPLY TO CHEST A RAFY TWO TIMES A DAY UNTIL RASH RESOLVES APPLY TO CHEST AREA TWO TIMES A DAY UNTIL RASH RESOLVE S SOLD: 06/24/2020 [facility] Nystatin 100 UNT/MG Topical Powder Nystatin 06/23/2020 12:00:00 AM EDT active [facility] ([facility]) Alprazolam 0.25 MG Oral Tablet ALPRAZOLAM 06/08/2020 12:00:00 AM EDT tablet 40 TAKE ONE TABLET BY MOUTH TWICE A DAY MAXIMUM DAILY DOS E = 2 TAKE ONE TABLET BY MOUTH TWICE A DAY MAXIMUM DAILY DOSE = 2 SOLD: 06/09/2020 [facility] Triamcinolone Acetonide 1 MG/ML Topical Cream Triamcinolone Acetonide 06/07/2020 12:00:00 AM EDT active [facility] ([facility]) Nystatin [id number] UNT/ML Topical Cream Nystatin 06/07/2020 12:00:00 AM EDT completed [facility] ([facility]) 0.1 % 06/07/2020 12:00:00 AM EDT cream 15 APPLY LEAST AFFECTIVE DOSAGE TO AFFECTED AREA OF CHEST TWO TIMES A DAY APPLY LEAST AFFECTIVE DOSAGE TO AFFECTED AREA OF CHEST TWO TIMES A DAY SOLD: 11/17/2020 [facility] 100,000 unit/gram 06/07/2020 12:00:00 AM EDT cream 30 APPLY TO CHEST AREA TWO TIMES A DAY UNTIL RASH RESOLVES APPLY TO CHEST AREA TWO TIMES A DAY UNTI L RASH RESOLVES SOLD: 06/09/2020 [facility] 0.1 % 06/07/2020 12:00:00 AM EDT cream 15 APPLY LEAST AFFECTIVE DOSAGE TO AFFECTED AREA OF CHEST TWO TIMES A DAY APPLY LEAST AFFECTIVE DOSAGE TO AFFECTED AREA OF CHEST TWO TIMES A DAY SOLD: 06/09/2020 [facility] 1 gram 06/02/2020 12:00:00 AM EDT tablet 90 TAKE ONE TABLET BY MOUTH EVERY 8 HOURS TAKE ONE TABLET BY MOUTH EVERY 8 HOURS SOLD: 06/03/2020 [facility] Nystatin [id number] UNT/ML / Triamcinolone Acetonide 1 MG/ ML Topical Cream Nystatin-Triamcinolone 06/01/2020 12:00:00 AM EDT completed [facility] ([facility]) Sucralfate 1000 MG Oral Tablet [Carafate] Carafate 06/01/2020 1 2:00:00 AM EDT ORAL active [facility] ([facility]) 0.3-30 mg-mcg 06/01/2020 12:00:00 AM EDT tablet 84 TAKE ONE TABLET BY MOUTH EVERY DAY TAKE ONE TABLET BY MOUTH EVERY DAY SOLD: 06/03/2020 [facility] Alprazolam 0.25 MG Oral Tablet ALPRAZOLAM 05/04/2020 12:00:00 AM EDT tablet 40 TAKE ONE TABLET BY MOUTH TWICE A DAY MAXIMUM DAILY DOS E = 2 TABLETS TAKE ONE TABLET BY MOUTH TWICE A DAY MAXIMUM DAILY DOSE = 2 TABLETS SOLD: 05/05/2020 [facility] Acetaminophen 300 MG / butalbital 50 MG / Caffeine 40 MG Oral Capsule [Fioricet] Fioricet 04/07/2020 12:00:00 AM EDT ORAL complete d [facility] ([facility]) 50-325-40 mg 04/07/2020 12:00:00 AM EDT tablet 60 TAKE ONE TABLET BY MOUTH EVERY 4 HOURS NEEDED FOR HEADACHE TAKE ONE TABLET BY MOUTH EVERY 4 HOURS A S NEEDED FOR HEADACHE SOLD: 04/11/2020 [facility] Alprazolam 0.25 MG Oral Tablet ALPRAZOLAM 03/30/2020 12:00:00 AM EDT tablet 40 TAKE ONE TABLET BY MOUTH TWICE A DAY MAXIMUM DAILY DOS E = TWO TABLETS TAKE ONE TABLET BY MOUTH TWICE A DAY MAXIMUM DAILY DOSE = TWO TABLETS SOLD: 04/01/2020 [facility] 10 mg 03/22/2020 12:00:00 AM EDT tablet 30 TAKE ONE TABLET BY MOUTH EVERY DAY TAKE ONE TABLET BY MOUTH EVERY DAY SOLD: 03/24/2020 [facility] pantoprazole 40 MG Delayed Release Oral Tablet PANTOPRAZOLE SODIUM 03/22/2020 12:00:00 AM EDT tablet,delayed release (DR/EC) 60 T RADHA ONE TABLET BY MOUTH TWICE A DAY TAKE ONE TABLET BY MOUTH TWICE A DAY SOLD: 11/30/2020 [facility] 10 mg 03/22/2020 12:00:00 AM EDT tablet 30 TAKE ONE TABLET BY MOUTH EVERY DAY TAKE ONE TABLET BY MOUTH EVERY DAY SOLD: 04/21/2020 [facility] pantoprazole 40 MG Delayed Release Oral Tablet PANTOPRAZOLE SODIUM 03/22/2020 12:00:00 AM EDT tablet,delayed release (DR/EC) 60 T RADHA ONE TABLET BY MOUTH TWICE A DAY TAKE ONE TABLET BY MOUTH TWICE A DAY SOLD: 09/29/2020 [facility] 10 mg 03/22/2020 12:00:00 AM EDT tablet 30 TAKE ONE TABLET BY MOUTH EVERY DAY TAKE ONE TABLET BY MOUTH EVERY DAY SOLD: 05/21/2020 [facility] 10 mg 03/22/2020 12:00:00 AM EDT tablet 30 TAKE ONE TABLET BY MOUTH EVERY DAY TAKE ONE TABLET BY MOUTH EVERY DAY SOLD: 06/22/2020 [email or web address] pantoprazole 40 MG Delayed Release Oral Tablet PANTOPRAZOLE SODIUM 03/22/2020 12:00:00 AM EDT tablet,delayed release (DR/EC) 60 T ARDHA ONE TABLET BY MOUTH TWICE A DAY TAKE ONE TABLET BY MOUTH TWICE A DAY SOLD: 07/20/2020 [facility] 10 mg 03/22/2020 12:00:00 AM EDT tablet 30 TAKE ONE TABLET BY MOUTH EVERY DAY TAKE ONE TABLET BY MOUTH EVERY DAY SOLD: 08/21/2020 [facility] 40 mg 03/22/2020 12:00:00 AM EDT tablet,delayed release (DR/EC) 60 TAKE ONE TABLET BY MOUTH TWICE A DAY TAKE ONE TABLET BY MOUTH TWICE A DAY SOLD: 05/21/2020 [facility] 10 mg 03/22/2020 12:00:00 AM EDT tablet 30 TAKE ONE TABLET BY MOUTH EVERY DAY TAKE ONE TABLET BY MOUTH EVERY DAY SOLD: 07/20/2020 [facility] 40 mg 03/22/2020 12:00:00 AM EDT tablet,delayed release (DR/EC) 60 TAKE ONE TABLET BY MOUTH TWICE A DAY TAKE ONE TABLET BY MOUTH TWICE A DAY SOLD: 03/24/2020 [facility] Alprazolam 0.25 MG Oral Tablet ALPRAZOLAM 02/20/2020 12:00:00 AM EDT tablet 40 TAKE ONE TABLET BY MOUTH TWICE A DAY MAXIMUM DAILY DOS E = 2 TABLETS TAKE ONE TABLET BY MOUTH TWICE A DAY MAXIMUM DAILY DOSE = 2 TABLETS SOLD: 02/21/2020 [email or web address] 75 mg 2020 12:00:00 AM EST capsule 10 TAKE ONE CAPSULE BY MOUTH TWICE A DAY FOR 5 DAYS TAKE ONE CAPSULE BY MOUTH TWICE A DAY FOR 5 DAYS SOLD: 2020 [facility] Alprazolam 0.25 MG Oral Tablet ALPRAZOLAM 01/19/2020 12:00:00 AM EST tablet 40 TAKE ONE TABLET BY MOUTH TWICE A DAY MAXIMUM DAILY DOS E = 2 TABLETS TAKE ONE TABLET BY MOUTH TWICE A DAY MAXIMUM DAILY DOSE = 2 TABLETS SOLD: 01/22/2020 [facility] Ondansetron 4 MG Oral Tablet [Zofran] Zofran 12/29/2019 12:00:00 AM EST ORAL active [facility] ([facility]) 4 mg 12/29/2019 12:00:00 AM EST tablet 30 TAKE ONE TO TWO TABLETS BY MOUTH EVERY 6 HOURS NEEDED FOR NAUSEA TAKE ONE TO TWO TABLETS BY MOUTH EVERY 6 HOURS NEEDED FOR NAUSEA SOLD: 09/16/2020 [facility] 4 mg 12/29/2019 12:00:00 AM EST tablet 30 TAKE ONE TO TWO TABLETS BY MOUTH EVERY 6 HOURS NEEDED FOR NAUSEA TAKE ONE TO TWO TABLETS BY MOUTH EVERY 6 HOURS NEEDED FOR NAUSEA SOLD: 12/29/2019 [facility] Amoxicillin 875 MG / Clavulanate 125 MG Oral Tablet Am oxicillin/Clavulanate Potassium 12/16/2019 12:00:00 AM EST ORAL completed [facility] ([facility]) 875-125 mg 12/16/2019 12:00:00 AM EST tablet 20 TAKE ONE TABLET BY MOUTH EVERY 12 HOURS TAKE ONE TABLET BY MOUTH EVERY 12 HOURS SOLD: 12/16/2019 [facility] Alprazolam 0.25 MG Oral Tablet ALPRAZOLAM 12/15/2019 12:00:00 AM EST tablet 40 TAKE ONE TABLET BY MOUTH TWICE A DAY MAXIMUM DAILY DOS E = 2 TABLETS TAKE ONE TABLET BY MOUTH TWICE A DAY MAXIMUM DAILY DOSE = 2 TABLETS SOLD: 12/16/2019 [facility] 0.25 mg 11/04/2019 12:00:00 AM EST tablet 40 TAKE ONE TABLET BY MOUTH TWICE A DAY MAXIMUM DAILY DOSE = 2 TAKE ONE TABLET BY MOUTH TWICE A DAY MAX IMUM DAILY DOSE = 2 SOLD: 11/06/2019 [facility] 0.05 % 10/07/2019 12:00:00 AM EST solution 25 APPLY TO CLEAN DRY SCALP IN THE MORNING FOR 10 DAYS AND NEEDED FOR FLARES APPLY TO CLEAN DRY SCALP IN THE MORNING FOR 10 DAYS AND NEEDED FOR FLARES SOLD: 06/22/2020 [facility] Clobetasol Propionate 0.5 MG/ML Topical Solution 0.05 % CLOB ETASOL PROPIONATE 10/07/2019 12:00:00 AM EST solution 25 APPLY TO CLEAN DRY SCALP IN THE MORNING FOR 10 DAYS AND NEEDED FOR FLARES APPLY TO CLEAN DRY SCALP IN THE MORNING FOR 10 DAYS AND NEEDED FOR FLARES SOLD: 05/21/2020 [facility] Clobetasol Propionate 0.5 MG/ML Topical Solution 0.05 % CLOB ETASOL PROPIONATE 10/07/2019 12:00:00 AM EST solution 25 APPLY TO CLEAN DRY SCALP IN THE MORNING FOR 10 DAYS AND NEEDED FOR FLARES APPLY TO CLEAN DRY SCALP IN THE MORNING FOR 10 DAYS AND NEEDED FOR FLARES SOLD: 05/03/2020 [facility] Clobetasol Propionate 0.5 MG/ML Topical Solution 0.05 % CLOB ETASOL PROPIONATE 10/07/2019 12:00:00 AM EST solution 25 APPLY TO CLEAN DRY SCALP IN THE MORNING FOR 10 DAYS AND NEEDED FOR FLARES APPLY TO CLEAN DRY SCALP IN THE MORNING FOR 10 DAYS AND NEEDED FOR FLARES SOLD: 04/01/2020 [facility] Clobetasol Propionate 0.5 MG/ML Topical Solution 0.05 % CLOB ETASOL PROPIONATE 10/07/2019 12:00:00 AM EST solution 25 APPLY TO CLEAN DRY SCALP IN THE MORNING FOR 10 DAYS AND NEEDED FOR FLARES APPLY TO CLEAN DRY SCALP IN THE MORNING FOR 10 DAYS AND NEEDED FOR FLARES SOLD: 12/25/2019 [facility] 0.05 % 10/07/2019 12:00:00 AM EST solution 25 APPLY TO CLEAN DRY SCALP IN THE MORNING FOR 10 DAYS AND NEEDED FOR FLARES APPLY TO CLEAN DRY SCALP IN THE MORNING FOR 10 DAYS AND NEEDED FOR FLARES SOLD: 07/08/2020 [facility] Clobetasol Propionate 0.5 MG/ML Topical Solution 0.05 % CLOB ETASOL PROPIONATE 10/07/2019 12:00:00 AM EST solution 25 APPLY TO CLEAN DRY SCALP IN THE MORNING FOR 10 DAYS AND NEEDED FOR FLARES APPLY TO CLEAN DRY SCALP IN THE MORNING FOR 10 DAYS AND NEEDED FOR FLARES SOLD: 02/15/2020 [facility] 10 mg 09/23/2019 12:00:00 AM EST tablet 30 TAKE ONE TABLET BY MOUTH EVERY DAY TAKE ONE TABLET BY MOUTH EVERY DAY SOLD: 12/26/2019 [facility] 10 mg 09/23/2019 12:00:00 AM EST tablet 30 TAKE ONE TABLET BY MOUTH EVERY DAY TAKE ONE TABLET BY MOUTH EVERY DAY SOLD: 11/28/2019 [facility] 10 mg 09/23/2019 12:00:00 AM EST tablet 30 TAKE ONE TABLET BY MOUTH EVERY DAY TAKE ONE TABLET BY MOUTH EVERY DAY SOLD: 02/21/2020 [facility] 10 mg 09/23/2019 12:00:00 AM EST tablet 30 TAKE ONE TABLET BY MOUTH EVERY DAY TAKE ONE TABLET BY MOUTH EVERY DAY SOLD: 01/22/2020 [facility] 40 mg 09/05/2019 12:00:00 AM EDT tablet,delayed release (DR/EC) 60 TAKE ONE TABLET BY MOUTH EVERY MORNING 1/2 HOUR BEFORE BREAKFAST THEN 1 AT BEDTIME TAKE ONE TABLET BY MOUTH EVERY MORNING 1/2 HOUR BEFORE BREAKFAST THEN 1 AT BEDTIME SOLD: 01/22/2020 [facility] 40 mg 09/05/2019 12:00:00 AM EDT tablet,delayed release (DR/EC) 60 TAKE ONE TABLET BY MOUTH EVERY MORNING 1/2 HOUR BEFORE BREAKFAST THEN 1 AT BEDTIME TAKE ONE TABLET BY MOUTH EVERY MORNING 1/2 HOUR BEFORE BREAKFAST THEN 1 AT BEDTIME SOLD: 11/28/2019 [facility] 0.3-30 mg-mcg 07/14/2019 12:00:00 AM EDT tablet 28 TAKE ONE TABLET BY MOUTH EVERY DAY TAKE ONE TABLET BY MOUTH EVERY DAY SOLD: 01/28/2020 [facility] 0.3-30 mg-mcg 07/14/2019 12:00:00 AM EDT tablet 28 TAKE ONE TABLET BY MOUTH EVERY DAY TAKE ONE TABLET BY MOUTH EVERY DAY SOLD: 01/05/2020 [facility] 0.3-30 mg-mcg 07/14/2019 12:00:00 AM EDT tablet 28 TAKE ONE TABLET BY MOUTH EVERY DAY TAKE ONE TABLET BY MOUTH EVERY DAY SOLD: 05/21/2020 [facility] 0.3-30 mg-mcg 07/14/2019 12:00:00 AM EDT tablet 28 TAKE ONE TABLET BY MOUTH EVERY DAY TAKE ONE TABLET BY MOUTH EVERY DAY SOLD: 02/21/2020 [facility] 0.3-30 mg-mcg 07/14/2019 12:00:00 AM EDT tablet 28 TAKE ONE TABLET BY MOUTH EVERY DAY TAKE ONE TABLET BY MOUTH EVERY DAY SOLD: 04/21/2020 [facility] 0.3-30 mg-mcg 07/14/2019 12:00:00 AM EDT tablet 28 TAKE ONE TABLET BY MOUTH EVERY DAY TAKE ONE TABLET BY MOUTH EVERY DAY SOLD: 12/07/2019 [facility] 0.3-30 mg-mcg 07/14/2019 12:00:00 AM EDT tablet 28 TAKE ONE TABLET BY MOUTH EVERY DAY TAKE ONE TABLET BY MOUTH EVERY DAY SOLD: 11/06/2019 [facility] 0.3-30 mg-mcg 07/14/2019 12:00:00 AM EDT tablet 28 TAKE ONE TABLET BY MOUTH EVERY DAY TAKE ONE TABLET BY MOUTH EVERY DAY SOLD: 03/24/2020 [facility] Insurance Providers Payer name Policy type / Coverage type Policy ID Covered libertarian ID Covered libertarian's relationship to smith Policy Smith Plan Information [employer] MCDO [id number] SP [id number] [facility](MCAID) O [id number] S [id number] ANSI-Medicaid [id number] [facility] Organization (HMO) [id number] Self [id number] SELF PAY ONLY SP MEDICAID [id number] SP [id number] [facility] Hmo Commercial [id number] Self [id number] [facility] Hmo Commercial [id number] Self [id number] [employer] MCDO [id number] SP [id number] [employer] MCDO [id number] SP [id number] [facility](MCAID) O [id number] S [id number] [facility] Hmo Commercial [id number] Self [id number] [employer] MCDO [id number] SP [id number] [employer] Health Maintenance Organization (HMO) [id number] Self [id number] [employer] (HMO) Se lf [employer] [facility] [facility] O [id number] S [id number] HMO BLUE [id number] SP [id number] [employer] P [id number] S [id number] SELF PAY UNAVAILABLE SP UNAVAILA BLE Surgeries/Procedures Procedure Description Date Indications Data Source(s) XTRNL ECG < 48 HR RECORD SCAN STOR W/PHY R&I 0 12:00:00 AM EDT [facility] ([facility]) Electrocardiogram Complete 09/06/2020 12:00:00 AM EDT [facility] Results ID Date Data Source [id number] 12/29/2020 10:00:00 AM EST [facility] Name Value Range Interpretation Code Description Data Lety rce(s) Supporting Document(s) SARS coronavirus 2 RNA Not Detected [facility] [place] This lab was ordered by [facility] and reported by [facility]. ID Date Data Source [id number] 12/13/2020 12:07:00 PM EST [facility] ([facility]) Name Value Range Interpretation Code Description Data [facility] rce(s) Supporting Document(s) Tissue transglutaminase IgA Ab [Units/volume] in Serum Labor atory test result 0-3 Normal (applies to non-numeric results) [facility] Negative 0 - 3 Weak Positive 4 - 10 Positive >10 . Tissue Transglutaminase (tTG) has been identified as the endomysial antigen. Studies have demonstr- ated that endomysial IgA antibodies have over 99% specificity for gluten sensitive enteropathy. Performed at: - [facility] [id number] Diamond Grader: Jessica Lamar MD, Phone: [phone] ID Date Data Source [id number] 12/13/2020 12:07:00 PM EST [facility] ([facility]) Name Value Range Interpretation Code Description Data [facility] Supporting Document(s) Creatinine For GFR 0.68 mg/dL 0.55-1.30 Normal (applies to non -numeric results) [facility] ([facility]) Glomerular Filtration Rate Laboratory test result Normal (applies to non- numeric results) [facility] ([facility]) <content>Units are mL/min/1.73 m2</content>
<content></content>
<content>Chronic Kidney Disease Staging per NKF:</content>
<content></content>
<content>Stage I & II GFR >=60 Normal to Mildly Decreased</content>
<content>Stage III GFR 30- 59 Moderately Decreased</content>
<content>Stage IV GFR 15-29 Severely Decreased</content>
<content>Stage V GFR <15 Very Little GFR Left</content>
<content>ESRD GFR <15 on AUTO BUMPER MECHANIC</content>
<content></content> ID Date Data Source [id number] 12/13/2020 12:07:00 PM EST [facility] ([facility]) Name Value Range Interpretation Code Description Data Lety rce(s) Supporting Document(s) Urea nitrogen [Mass/volume] in Serum or Plasma 11 mg/dL 7 -18 Normal (applies to non-numeric results) [facility] ([facility]) ID Date Data Source [id number] 12/13/2020 12:07:00 PM EST [facility] ([facility]) Name Value Range Interpretation Code Description Data Lety rce(s) Supporting Document(s) Ast/Sgot 8 U/L 7-37 Normal (applies to non-numeric resul ts) [facility] ([facility]) Alkaline Phosphatase 53 U/L 45-117 Normal (applies to non-num ajay results) [facility] ([facility]) Alt/SGPT 20 U/L 12-78 Normal (applies to non-numeric resul ts) [facility] ([facility]) Bilirubin,Total 0.3 mg/dL 0.2-1.0 Normal (applies to non-numeric results) [facility] ([facility]) Total Protein 7.4 GM/DL 6.4-8.2 Normal (applies to non-numeric re sults) [facility] ([facility]) Bilirubin,Direct Laboratory test result 0.0-0.2 Normal ( applies to non-numeric results) [facility] ([facility]) Albumin/Globulin Ratio 1.3 1.2-2.2 Normal (applies to non-n umeric results) [facility] ([facility]) Albumin 4.2 GM/DL 3.2-5.2 Normal (applies to non-numeric resul ts) [facility] ([facility]) ID Date Data Source [id number] 12/13/2020 12:07:00 PM EST [facility] ([facility]) Name Value Range Interpretation Code Description Data Lety rce(s) Supporting Document(s) White Blood Count 5.6 10 4.0-10.0 Normal (applies to non-numeri c results) [facility] ([facility]) Red Blood Count 4.53 10 4.00-5.40 Normal (applies to non-numeric results) [facility] ([facility]) Hemoglobin 13.8 g/dL 12.0-15.5 Normal (applies to non-numeric resul ts) [facility] ([facility]) Hematocrit 41.3 % 36.0-47.0 Normal (applies to non-numeric resul ts) [facility] ([facility]) Mean Corpuscular Volume 91.2 fl 80.0-96.0 Normal ( applies to non-numeric results) [facility] ([facility]) Mean Corpuscular HGB Conc 33.4 g/dL 32.0-36.5 Normal (applies to non-numeric results) [facility] ([facility]) Red Cell Distribution Width 12.2 % 11.5-14.5 Norm al (applies to non-numeric results) [facility] ([facility]) Mean Corpuscular Hemoglobin 30.5 pg 27.0-33.0 Norm al (applies to non-numeric results) [facility] ([facility]) Lymph % 30.5 % 24.0-44.0 Normal (applies to non-numeric resul ts) [facility] ([facility]) Neutrophils % 61.4 % 36.0-66.0 Normal (applies to non-numeric re sults) [facility] ([facility]) Platelet Count, Automated 199 10 150-450 Normal (applies to non-numeric results) [facility] ([facility]) Baso % 0.5 % 0.0-1.0 Normal (applies to non-numeric resul ts) [facility] ([facility]) Eos % 1.3 % 0.0-3.0 Normal (applies to non-numeric resul ts) [facility] ([facility]) [facility] % 6.1 % 0.0-5.0 Above high normal [facility] ([facility]) Nucleated Red Blood Cell % 0.0 % 0-0 Normal (applies to n on-numeric results) [facility] ([facility]) Immature Granulocyte % 0.2 % 0-3.0 Normal (applies to non-n umeric results) [facility] ([facility]) Neutrophils # 3.4 10 1.5-8.5 Normal (applies to non-numeric re sults) [facility] ([facility]) [facility] # 0.3 10 0.0-0.8 Normal (applies to non-numeric resul ts) [facility] ([facility]) Eos # 0.1 10 0.0-0.5 Normal (applies to non-numeric resul ts) [facility] ([facility]) Lymph # 1.7 10 1.5-5.0 Normal (applies to non-numeric resul ts) [facility] ([facility]) Baso # 0.0 10 0.0-0.2 Normal (applies to non-numeric resul ts) [facility] ([facility]) ID Date Data Source [id number] 09/20/2020 12:00:00 AM EST [facility] Patient Name: NISHA CHUAHAN [facility] Date of : 1980[place] [address] Date of Exam: 09/20/2020#: Fax: [phone] EXAM: MAMMO SCREENING WITH CADCLINICAL INFORMATION: Screening.Based on the personal and family history information your patient suppliedat the time of imaging, her lifetime risk of breast cancer estimated by theTyrer-Cuzick model is 18.3%. Given that this patient has less than 20% TCrisk score, no further medical management is currently recommended at thistime.The patient has previously received genetic testing.Digital screening (2D) mammography was performed bilaterally in the CC andMLO projections. Additionally, breast tomosynthesis (3D mammography) wasperformed bilaterally in the CC and MLO projections. Today's exam wascompared to the prior exam(s).By history, the patient has no complaints of a palpable breast abnormalityor other significant breast complaints.The patient states last clinical breast exam was in August of 2020.The breasts are unchanged in size and shape. There are no ian-soft tissuedensities or spiculated masses. There is no internal architecturaldistortion. There are no suspicious ian-calcific clusters. Skinthickening or nipple retraction is not present.The Volpara volumetric breast density category is B, there are scatteredareas of fibroglandular density.IMPRESSION:BI-RADS Category 1 - Negative Mammogram. Stable mammogram. There is noevidence of malignant alteration of the breasts. Followup examinationrecommended in one year.This mammogram was read with the assistance of [employer], an FDAapproved computer aided detection system for mammography.Negative x-ray reports should not delay surgical consultation if a dominantor clinically suspicious mass is present.Not all breast cancers can be identified by mammography. Therefore, werecommend that you continue to perform regular breast self-examination andphysical examination and then promptly contact your physician of anyconcerns or changes.Adenosis and dense breasts may obscure an underlying neoplasm.ELAINE Grant/Kristy you for referring NAYANA CHAUHAN to our office. Electronically Signed - TWAN MTZ DO 09/20/20 16:20 Name Value Range Interpretation Code Description Data Lety rce(s) Supporting Document(s) ID Date Data Source [id number] 09/06/2020 03:02:00 PM EDT [facility] ([facility]) Name Value Range Interpretation Code Description Data Lety rce(s) Supporting Document(s) EKG Laboratory test result [facility] ([facility]) ID Date Data Source [id number] 04/28/2020 05:00:00 PM EDT [facility] ([facility]) Name Value Range Interpretation Code Description Data Lety rce(s) Supporting Document(s) MRI Brain W/O Contrast Laboratory test result [facility] ([facility]) Laboratory test finding (navigational concept) [id number] [facility] ([facility]) ID Date Data Source [id number] 12/29/2019 04:58:00 PM EST [facility] ([facility]) Name Value Range Interpretation Code Description Data Lety rce(s) Supporting Document(s) Ast/Sgot 8 U/L 7-37 Normal (applies to non-numeric resul ts) [facility] ([facility]) Alkaline Phosphatase 62 U/L 45-117 Normal (applies to non-num ajay results) [facility] ([facility]) Alt/SGPT 20 U/L 12-78 Normal (applies to non-numeric resul ts) [facility] ([facility]) Total Protein 7.4 GM/DL 6.4-8.2 Normal (applies to non-numeric re sults) [facility] ([facility]) Bilirubin,Direct 0.1 mg/dL 0.0-0.2 Normal (applies to non-numeric results) [facility] ([facility]) Bilirubin,Total 0.5 mg/dL 0.2-1.0 Normal (applies to non-numeric results) [facility] ([facility]) Albumin/Globulin Ratio 1.24 1.00-1.93 Normal (applies to non-numeric results) [facility] ([facility]) Albumin 4.1 GM/DL 3.2-5.2 Normal (applies to non-numeric resul ts) [facility] ([facility]) ID Date Data Source [id number] 12/29/2019 04:58:00 PM EST [facility] ([facility]) Name Value Range Interpretation Code Description Data Lety rce(s) Supporting Document(s) Lipase [Enzymatic activity/volume] in Serum or Plasma 55 U/L 73-393 Below low normal [facility] ([facility]) <content>note:<nlbl:[email or web address]> </content>
<content></content> ID Date Data Source [id number] 12/29/2019 04:58:00 PM EST [facility] ([facility]) Name Value Range Interpretation Code Description Data Lety rce(s) Supporting Document(s) White Blood Count 6.6 10 4.0-10.0 Normal (applies to non-numeri c results) [facility] ([facility]) Red Blood Count 4.67 10 4.00-5.40 Normal (applies to non-numeric results) [facility] ([facility]) Hemoglobin 13.8 g/dL 12.0-15.5 Normal (applies to non-numeric resul ts) [facility] ([facility]) Hematocrit 42.9 % 36.0-47.0 Normal (applies to non-numeric resul ts) [facility] ([facility]) Mean Corpuscular Hemoglobin 29.6 pg 27.0-33.0 Norm al (applies to non-numeric results) [facility] ([facility]) Mean Corpuscular Volume 91.9 fl 80.0-96.0 Normal ( applies to non-numeric results) [facility] ([facility]) Mean Corpuscular HGB Conc 32.2 g/dL 32.0-36.5 Normal (applies to non-numeric results) [facility] ([facility]) Red Cell Distribution Width 12.5 % 11.5-14.5 Norm al (applies to non-numeric results) [facility] ([facility]) Neutrophils % 70.3 % 36.0-66.0 Above high normal [facility] ([facility]) Platelet Count, Automated 204 10 150-450 Normal (applies to non-numeric results) [facility] ([facility]) Eos % 0.9 % 0.0-3.0 Normal (applies to non-numeric resul ts) [facility] ([facility]) [facility] % 5.3 % 0.0-5.0 Above high normal [facility] ([facility]) Lymph % 22.9 % 24.0-44.0 Below low normal [facility] ( [facility]) Nucleated Red Blood Cell % 0.0 % 0-0 Normal (applies to n on-numeric results) [facility] ([facility]) Baso % 0.3 % 0.0-1.0 Normal (applies to non-numeric resul ts) [facility] ([facility]) Immature Granulocyte % 0.3 % 0-3.0 Normal (applies to non-n umeric results) [facility] ([facility]) Neutrophils # 4.6 10 1.5-8.5 Normal (applies to non-numeric re sults) [facility] ([facility]) [facility] # 0.4 10 0.0-0.8 Normal (applies to non-numeric resul ts) [facility] ([facility]) Lymph # 1.5 10 1.5-5.0 Normal (applies to non-numeric resul ts) [facility] ([facility]) Eos # 0.1 10 0.0-0.5 Normal (applies to non-numeric resul ts) [facility] ([facility]) Baso # 0.0 10 0.0-0.2 Normal (applies to non-numeric resul ts) [facility] ([facility]) ID Date Data Source [id number] 12/29/2019 04:58:00 PM EST [facility] ([facility]) Name Value Range Interpretation Code Description Data Lety rce(s) Supporting Document(s) Blood Urea Nitrogen 11 mg/dL 7-18 Normal (applies to non-nume beverly results) [facility] ([facility]) Glucose, Fasting 79 mg/dL 70-100 Normal (applies to non-numeric results) [facility] ([facility]) Creatinine For GFR 0.73 mg/dL 0.55-1.30 Normal (applies to non -numeric results) [facility] ([facility]) Sodium Level 137 meq/L 136-145 Normal (applies to non-numeric res ults) [facility] ([facility]) Glomerular Filtration Rate Laboratory test result Normal (applies to non- numeric results) [facility] ([facility]) <content>Units are mL/min/1.73 m2</content>
<content></content>
<content>Chronic Kidney Disease Staging per NKF:</content>
<content></content>
<content>Stage I & II GFR >=60 Normal to Mildly Decreased</content>
<content>Stage III GFR 30-59 Moderately Decreased</content>
<content>Stage IV GFR 15-29 Severely Decreased</content>
<content>Stage V GFR <15 Very Little GFR Left</content>
<content>ESRD GFR <15 on AUTO BUMPER MECHANIC</content>
<content></content> Chloride Level 100 meq/L 98-107 Normal (applies to non-numeric r esults) [facility] ([facility]) Potassium Serum 4.4 meq/L 3.5-5.1 Normal (applies to non-numeric results) [facility] ([facility]) Carbon Dioxide Level 30 meq/L 21-32 Normal (applies to non-num ajay results) [facility] ([facility]) Calcium Level 9.6 mg/dL 8.5-10.1 Normal (applies to non-numeric re sults) [facility] ([facility]) Anion Gap 7 meq/L 8-16 Below low normal [facility] ( [facility]) Procedure Social History Code Duration Value Status Description Data Source(s ) Smoking 08/23/2020 12:00:00 AM EDT Former Smoker completed Former Smoker eCW1 ([facility]) Vital Signs ID Date Data Source UNK Name Value Range Interpretation Code Description Data Source(s) Body surface area Derived from formula 1.72 m2 1.72 m2 [facility] ([facility]) Body weight 73.030 kg 73.030 kg [facility] ([facility]) [place] body weight 105 [lb_av] 105 [lb_av] [facility] Body mass index (BMI) [Ratio] 30.4 kg/m2 30.4 k g/m2 [facility] ([facility]) Body weight 161.00 [lb_av] 161.00 [lb_av] [facility] ([facility]) Body height 61 [in_i] 61 [in_i] [facility] ([facility]) 5'1" Diastolic blood pressure 72 mm[Hg] 72 mm[Hg] [facility] ([facility]) Systolic blood pressure 116 mm[Hg] 116 mm[Hg] [facility] [place] body weight 100 [lb_av] 100 [lb_av] [facility] Oxygen saturation in Arterial blood by Pulse oximetry 98 % 98 % [facility] ([facility]) Body temperature 98.5 [degF] 98.5 [degF] [facility] ([facility]) Respiratory rate 16 /min 16 /min [facility] ( [facility]) Heart rate 76 /min 76 /min [facility] ([facility]) Body mass index (BMI) [Ratio] 31.0 kg/m2 31.0 k g/m2 [facility] ([facility]) Body weight 163.00 [lb_av] 163.00 [lb_av] [facility] ([facility]) Body height 60.8 [in_i] 60.8 [in_i] [facility] ([facility]) 5'0.80" Diastolic blood pressure 82 mm[Hg] 82 mm[Hg] [facility] ([facility]) Systolic blood pressure 132 mm[Hg] 132 mm[Hg] M [facility] ([facility]) [place] body weight 100 [lb_av] 100 [lb_av] [facility] ([facility]) Oxygen saturation in Arterial blood by Pulse oximetry 99 % 99 % [facility] ([facility]) Body temperature 98.3 [degF] 98.3 [degF] [facility] ([facility]) Respiratory rate 16 /min 16 /min [facility] ( [facility]) Heart rate 86 /min 86 /min [facility] ([facility]) Body mass index (BMI) [Ratio] 31.1 kg/m2 31.1 k g/m2 [facility] ([facility]) Body weight 163.50 [lb_av] 163.50 [lb_av] [facility] ([facility]) Body height 60.8 [in_i] 60.8 [in_i] [facility] ([facility]) 5'0.80" Diastolic blood pressure 70 mm[Hg] 70 mm[Hg] [facility] ([facility]) Systolic blood pressure 115 mm[Hg] 115 mm[Hg] M [facility] ([facility]) Diastolic blood pressure 82 mm[Hg] 82 mm[Hg] eCW1 ([facility]) Systolic blood pressure 122 mm[Hg] 122 mm[Hg] e CW1 ([facility]) Body mass index (BMI) [Ratio] 30.8 kg/m2 30.8 k g/m2 W1 ([facility]) Body height [in_i] eCW1 ([facility]) Body weight 73.94 kg 73.94 kg eCW1 ([facility]) Body weight 163 [lb_av] 163 [lb_av] eCW1 ([facility]) [place] body weight 100 [lb_av] 100 [lb_av] [facility] ([facility]) Oxygen saturation in Arterial blood by Pulse oximetry 98 % 98 % [facility] ([facility]) Body temperature 98.3 [degF] 98.3 [degF] [facility] ([facility]) Respiratory rate 16 /min 16 /min [facility] ( [facility]) Heart rate 71 /min 71 /min [facility] ([facility]) Body mass index (BMI) [Ratio] 30.7 kg/m2 30.7 k g/m2 [facility] ([facility]) Body weight 161.31 [lb_av] 161.31 [lb_av] [facility] ([facility]) Body height 60.8 [in_i] 60.8 [in_i] [facility] ([facility]) 5'0.80" Diastolic blood pressure 78 mm[Hg] 78 mm[Hg] [facility] ([facility]) Systolic blood pressure 132 mm[Hg] 132 mm[Hg] M [facility] ([facility]) Systolic blood pressure 112 mm[Hg] 112 mm[Hg] [facility] ([facility]) Oxygen saturation in Arterial blood by Pulse oximetry 99 % 99 % [facility] ([facility]) Body temperature 99.0 [degF] 99.0 [degF] [facility] ([facility]) Respiratory rate 18 /min 18 /min [facility] ( [facility]) Heart rate 89 /min 89 /min [facility] ([facility]) Body mass index (BMI) [Ratio] 30.3 kg/m2 30.3 k g/m2 [facility] ([facility]) Body weight 159.50 [lb_av] 159.50 [lb_av] [facility] ([facility]) Body height 60.8 [in_i] 60.8 [in_i] [facility] ([facility]) 5'0.80" Diastolic blood pressure 68 mm[Hg] 68 mm[Hg] [facility] ([facility]) Oxygen saturation in Arterial blood by Pulse oximetry 99 % 99 % [facility] ([facility]) Body temperature 98.9 [degF] 98.9 [degF] [facility] ([facility]) Respiratory rate 18 /min 18 /min [facility] ( [facility]) Heart rate 71 /min 71 /min [facility] ([facility]) Body mass index (BMI) [Ratio] 29.5 kg/m2 29.5 k g/m2 [facility] ([facility]) Body weight 155.25 [lb_av] 155.25 [lb_av] [facility] ([facility]) Body height 60.8 [in_i] 60.8 [in_i] [facility] ([facility]) 5'0.80" Diastolic blood pressure 78 mm[Hg] 78 mm[Hg] [facility] ([facility]) Systolic blood pressure 118 mm[Hg] 118 mm[Hg] M [facility] ([facility]) Oxygen saturation in Arterial blood by Pulse oximetry 99 % 99 % [facility] ([facility]) Body temperature 99.0 [degF] 99.0 [degF] [facility] ([facility]) Respiratory rate 18 /min 18 /min [facility] ( [facility]) Heart rate 89 /min 89 /min [facility] ([facility]) Body mass index (BMI) [Ratio] 29.9 kg/m2 29.9 k g/m2 [facility] ([facility]) Body weight 157.12 [lb_av] 157.12 [lb_av] [facility] ([facility]) Body height 60.8 [in_i] 60.8 [in_i] [facility] ([facility]) 5'0.80" Diastolic blood pressure 64 mm[Hg] 64 mm[Hg] [facility] ([facility]) Systolic blood pressure 100 mm[Hg] 100 mm[Hg] M [facility] ([facility]) Oxygen saturation in Arterial blood by Pulse oximetry 99 % 99 % [facility] ([facility]) Body temperature 98.3 [degF] 98.3 [degF] [facility] ([facility]) Respiratory rate 75 /min 75 /min [facility] ( [facility]) Heart rate 16 /min 16 /min [facility] ([facility]) Body mass index (BMI) [Ratio] 29.7 kg/m2 29.7 k g/m2 [facility] ([facility]) Body weight 156.25 [lb_av] 156.25 [lb_av] [facility] ([facility]) Body height 60.8 [in_i] 60.8 [in_i] [facility] ([facility]) 5'0.80" Diastolic blood pressure 60 mm[Hg] 60 mm[Hg] [facility] ([facility]) Systolic blood pressure 110 mm[Hg] 110 mm[Hg] Pam [facility] ([facility])
--- OUTSIDE RECORDS SUMMARY | 2021-01-03 10:03 | CCD | Continuity of Care Document ---
Author Author Lidia MAZARIEGOS M.D. Organization Unknown Address [address] [place] [address], [address] [place] [address] Phone [phone] Care Team Providers [facility] [employer] Worker Name Role Phone Inocente English M.D. AUTM [phone] Michelle Roberto D.O. AUTM Problems Active Problems Provider Date Essential hypertension Aneesh Mazariegos M.D. Onset: 06/20 Social History Type Date Description Comments Sex Unknown ETOH Use Denies alcohol use Tobacco Use Start: Unknown Non Smoker Allergies, Adverse Reactions, Alerts Description No Known Drug Allergies Medications Active Medications SIG Qnty Indications Ordering Provide r Date Pantoprazole Sodium 40mg Tablets D R twice daily -- one tablet in morning 1/2 hour before breakfast and one tablet prior to bedtime. taper after 8 weeks 60tabs K21.9 Aneesh Mazariegos M.D. 08/25/2019 Lisinopril 10mg Tablets 1tab po qd Unknown Xanax 0.25mg Tablets use a s directed qd Unknown Low-Ogestrel 0.3-30mg-mcg Tablets 1tab po qd Unknown Clobetasol Propionate 0.05% Cream use as directed Unknown Immunizations Description No Information Available Vital Signs Date Vital Result Comment 12/13/2020 10:30am BP Systolic 116 mmHg BP Diastolic 72 mmHg Height 61 inches 5'1" Weight 161.00 lb BMI (Body Mass Index) 30.4 kg/m2 [place] Body Weight 105 lb Weight 73.030 kg BSA (Body Surface Area) 1.72 m2 07/14/2019 9:20am BP Systolic 108 mmHg BP Diastolic 64 mmHg Height 61 inches 5'1" Weight 151.00 lb BMI (Body Mass Index) 28.5 kg/m2 [place] Body Weight 105 lb Weight 68.494 kg BSA (Body Surface Area) 1.68 m2 Results Description No Information Available Procedures Description No Information Available Medical Devices Description No Information Available Encounters Description No Information Available Assessments Date Code Description Provider 12/13/2020 R10.13 Epigastric pain Aneesh Smith ala, M.D. 12/13/2020 R10.11 Right upper quadrant pain Monty Mazariegos M.D. 12/13/2020 K21.9 Gastro-esophageal reflux disease without esophagitis Aneesh Mazariegos M.D. 12/13/2020 K62.5 Hemorrhage of anus and rectum Haroldo Mazariegos M.D. Plan of Treatment 12/13/2020 - Aneesh Mazariegos M.D.* R10.13 Epigastric pain * R10.11 Right upper quadrant pain * K21.9 Gastro-esophageal reflux disease without esophagitis * K62.5 Hemorrhage of anus and rectum * * Comments:* Possible differentials: Possible differentials: Functional Status Description No Information Available Mental Status Description No Information Available Referrals Description No Information Available
[2021-01-03] MEDS ORDERED: propofoL 500 MG/50 ML VIAL As Ordered ONE (10:15)
[2021-01-03] MEDS ORDERED: MIDAZOLAM INJ 2MG/2ML VIAL (J2250 PER 1MG) As Ordered ONE (11:23)
--- NOTE | 2021-01-03 11:49 | ROOR ---
Patient Name: Lidia Watters Procedure Date: 01/03/2021 11:21 AM Date of : 1980 Age: 40 Room: [facility] Gender: Female Note Status: Finalized Procedure: Colonoscopy Indications: Hematochezia Providers: Aneesh Torrez MD Referring MD: Michelle ARREAGA DO Requesting Provider: Medicines: Monitored Anesthesia Care Complications: No immediate complications. Procedure: Pre-Anesthesia Assessment: - Prior to the procedure, a History and Physical was performed, and patient medications and allergies were reviewed. The patient is competent. The risks and benefits of the procedure and the sedation options and risks were discussed with the patient. All questions were answered and informed consent was obtained. Patient identification and proposed procedure were verified by the physician, the nurse and the anesthesiologist in the procedure room. Mental Status Examination: alert and oriented. Airway Examination: normal oropharyngeal airway and neck mobility. Respiratory Examination: clear to auscultation. CV Examination: normal. Prophylactic Antibiotics: The patient does not require prophylactic antibiotics. Prior Anticoagulants: The patient has taken no previous anticoagulant or antiplatelet agents. ASA Grade Assessment: II - A patient with mild systemic disease. After reviewing the risks and benefits, the patient was deemed in satisfactory condition to undergo the procedure. The anesthesia plan was to use monitored anesthesia care (MAC). Immediately prior to administration of medications, the patient was re-assessed for adequacy to receive sedatives. The heart rate, respiratory rate, oxygen saturations, blood pressure, adequacy of pulmonary ventilation, and response to care were monitored throughout the procedure. The physical status of the patient was re-assessed after the procedure. The Colonoscope was introduced through the anus and advanced to the terminal ileum, with identification of the appendiceal orifice and IC valve. The colonoscopy was performed without difficulty. The patient tolerated the procedure well. The quality of the bowel preparation was good. The terminal ileum, ileocecal valve, appendiceal orifice, and rectum were photographed. Scope insertion time was 2 minutes. Scope withdrawal time was 8 minutes. The total duration of the procedure was 10 minutes. Findings: The perianal and digital rectal examinations were normal. The terminal ileum appeared normal. Normal mucosa was found in the entire colon. Non-bleeding external and internal hemorrhoids were found during retroflexion. The hemorrhoids were medium-sized. Impression: - The examined portion of the ileum was normal. - Normal mucosa in the entire examined colon. - Non-bleeding external and internal hemorrhoids. - No specimens collected. Recommendation: - Patient has a contact number available for emergencies. The signs and symptoms of potential delayed complications were discussed with the patient. Return to normal activities tomorrow. Written discharge instructions were provided to the patient. - High fiber diet. - Continue present medications. - Use fiber, for example Citrucel, Fibercon, Konsyl or Metamucil. - Preparation H ointment: Apply externally daily for 5 days. - Repeat colonoscopy at age 52 for screening purposes. - Telephone GI clinic if symptomatic in 1 week. - Return to primary care physician. Procedure Code(s): --- Professional --- 82431, Colonoscopy, flexible; diagnostic, including collection of specimen(s) by brushing or washing, when performed (separate procedure) Diagnosis Code(s): --- Professional --- K64.8, Other hemorrhoids K92.1, Melena (includes Hematochezia) CPT copyright 2019 [employer]. All rights reserved. The codes documented in this report are preliminary and upon health information coder review may be revised to meet current compliance requirements. Aneesh Torrez MD Aneesh Torrez MD 01/03/2021 11:48:54 AM Electronically signed by Aneesh Torrez MD Number of Addenda: 0 Note Initiated On: 01/03/2021 11:21 AM Estimated Blood Loss: Estimated blood loss: none.
[2021-01-03 12:05] VITALS: BP 117/78
== END 2021-01-03 12:10 | disposition home or self-care (01) ==
LOC: M OPP 09:59
PROVIDERS: ATTEND Internal Medicine Gastroenterology
DX: K92.1 Melena (principal); K59.00 Constipation, unspecified; K64.8 Other hemorrhoids; I10 Essential (primary) hypertension; R12 Heartburn; F41.9 Anxiety disorder, unspecified; Z79.899 Other long term (current) drug therapy; Z80.3 Family history of malignant neoplasm of breast; Z80.41 Family history of malignant neoplasm of ovary
CPT/HCPCS: 45378; J2250

== ENCOUNTER → 2021-07-12 | Outpatient (CLI) | payer OTHER ==
[~2021-07-12] MED LIST changes: -NS 1,000 ML IV ONE
[2021-07-12 16:39] LABS: BASO % 0.5 % (0.0-1.0); EOS # 0.1 10^3/uL (0.0-0.5); HEMATOCRIT 40.8 % (36.0-47.0); HEMOGLOBIN 13.4 g/dl (12.0-15.5); LYMPH # 1.9 10^3/uL (1.5-5.0); LYMPH % 34.6 % (24.0-44.0); MEAN CORPUSCULAR HEMOGLOBIN 30.2 pg (27.0-33.0); MEAN CORPUSCULAR HGB CONC 32.8 g/dl (32.0-36.5); MEAN CORPUSCULAR VOLUME 91.9 fl (80.0-96.0); MONO # 0.3 10^3/uL (0.0-0.8); NEUTROPHILS # 3.1 10^3/uL (1.5-8.5); NEUTROPHILS % 56.5 % (36.0-66.0); PLATELET COUNT, AUTOMATED 215 10^3/uL (150-450); RED BLOOD COUNT 4.44 10^6/uL (4.00-5.40); WHITE BLOOD COUNT 5.5 10^3/uL (4.0-10.0)
[2021-07-12 17:12] LABS: HEMOGLOBIN A1c 5.3 %
[2021-07-12 17:13] LABS: ALBUMIN 3.9 GM/DL (3.2-5.2); ALT/SGPT 18 U/L (12-78); BILIRUBIN,TOTAL 0.4 MG/DL (0.2-1.0); BLOOD UREA NITROGEN 10 MG/DL (7-18); CARBON DIOXIDE LEVEL 28 MEQ/L (21-32); CHLORIDE LEVEL 105 MEQ/L (98-107); CHOLESTEROL LEVEL 241 MG/DL (<200); CHOLESTEROL RISK RATIO 7.303 (<5); CREATININE FOR GFR 0.73 MG/DL (0.55-1.30); FREE T4 0.95 NG/DL (0.76-1.46); GLOMERULAR FILTRATION RATE > 60.0 (>60); GLUCOSE, FASTING 82 MG/DL (70-100); HDL CHOLESTEROL 33 MG/DL (>40); LDL CHOLESTEROL 173 MG/DL (<100); NON-HDL-C 208 MG/DL; POTASSIUM SERUM 4.3 MEQ/L (3.5-5.1); SODIUM LEVEL 138 MEQ/L (136-145); TRIGLYCERIDES LEVEL 174 MG/DL (<150)
[2021-07-12 17:14] LABS: TOTAL 25(OH) VITAMIN D 21.4 NG/ML (30.0-100.0)
== END ==
LOC: M WUC 10:29
PROVIDERS: ATTEND Physician Assistant
DX: Z13.220 Encounter for screening for lipoid disorders (principal)

== ENCOUNTER → 2021-07-23 | Outpatient (CLI) | payer OTHER ==
[2021-07-23 12:03] LABS: BASO % 0.2 % (0.0-1.0); EOS # 0.1 10^3/uL (0.0-0.5); EOS % 1.4 % (0.0-3.0); HEMOGLOBIN 13.3 g/dl (12.0-15.5); LYMPH # 2.1 10^3/uL (1.5-5.0); LYMPH % 32.2 % (24.0-44.0); MEAN CORPUSCULAR HEMOGLOBIN 30.2 pg (27.0-33.0); MEAN CORPUSCULAR HGB CONC 33.3 g/dl (32.0-36.5); MEAN CORPUSCULAR VOLUME 90.7 fl (80.0-96.0); MONO # 0.4 10^3/uL (0.0-0.8); MONO % 6.1 % (2.0-8.0); NEUTROPHILS # 3.8 10^3/uL (1.5-8.5); NEUTROPHILS % 59.9 % (36.0-66.0); PLATELET COUNT, AUTOMATED 193 10^3/uL (150-450); RED BLOOD COUNT 4.41 10^6/uL (4.00-5.40); WHITE BLOOD COUNT 6.4 10^3/uL (4.0-10.0)
[2021-07-23 12:35] LABS: ALBUMIN 3.8 GM/DL (3.2-5.2); ALT/SGPT 20 U/L (12-78); BILIRUBIN,TOTAL 0.4 MG/DL (0.2-1.0); BLOOD UREA NITROGEN 10 MG/DL (7-18); CARBON DIOXIDE LEVEL 29 MEQ/L (21-32); CHLORIDE LEVEL 106 MEQ/L (98-107); CHOLESTEROL LEVEL 244 MG/DL (<200); CREATININE FOR GFR 0.66 MG/DL (0.55-1.30); GLOMERULAR FILTRATION RATE > 60.0 (>60); GLUCOSE, FASTING 84 MG/DL (70-100); HDL CHOLESTEROL 40 MG/DL (>40); LDL CHOLESTEROL 179 MG/DL (<100); NON-HDL-C 204 MG/DL; POTASSIUM SERUM 4.3 MEQ/L (3.5-5.1); SODIUM LEVEL 138 MEQ/L (136-145); TOTAL PROTEIN 6.9 GM/DL (6.4-8.2); TRIGLYCERIDES LEVEL 123 MG/DL (<150)
[2021-07-25 10:20] LABS: TOTAL 25(OH) VITAMIN D 20.3 NG/ML (30.0-100.0)
== END ==
LOC: M LAB 11:43
PROVIDERS: ATTEND Physician Assistant
DX: E78.2 Mixed hyperlipidemia (principal); E55.9 Vitamin D deficiency, unspecified

== ENCOUNTER → 2021-08-08 | Outpatient (CLI) | payer OTHER | LOC: M RAD 14:59 | PROVIDERS: ATTEND Physician Assistant | DX: R51.9 Headache, unspecified (principal); Z82.49 Family history of ischemic heart disease and other diseases of the circulatory system ==

== ENCOUNTER → 2021-09-06 | Outpatient (CLI) | payer OTHER ==
--- NOTE | 2021-09-06 12:56 | REP ---
INDICATION: LEFT SIDE ABD PAIN. COMPARISON: None. TECHNIQUE: Two supine views of the abdomen and pelvis. FINDINGS: Bowel gas pattern is nonspecific although mild fecal stasis and constipation cannot be excluded. No evidence for bowel obstruction or perforation. No organomegaly. No significant abnormal calcifications. Skeletal structures are intact. IMPRESSION: Nonspecific bowel gas pattern as above. <Electronically signed by Gabriel Magana > 09/06/21 [id number]
== END ==
LOC: M PLAIMG 11:36
PROVIDERS: ATTEND Physician Assistant
DX: K59.00 Constipation, unspecified (principal); R35.0 Frequency of micturition

== ENCOUNTER → 2021-09-27 | Outpatient (REF) | payer OTHER | LOC: M SFHCWAGY 17:17 | PROVIDERS: ATTEND Nurse Practitioner Women's Health | DX: Z12.4 Encounter for screening for malignant neoplasm of cervix (principal) ==

== ENCOUNTER → 2021-10-17 | Outpatient (CLI) | payer OTHER | LOC: M WHC 12:34 | PROVIDERS: ATTEND Family Medicine | DX: Z12.31 Encounter for screening mammogram for malignant neoplasm of breast (principal) ==

== ENCOUNTER → 2021-12-20 | Outpatient (CLI) | payer OTHER | LOC: M PLALAB 11:27 | PROVIDERS: ATTEND Nurse Practitioner Adult Health | DX: R13.13 Dysphagia, pharyngeal phase (principal) ==

== ENCOUNTER → 2022-01-02 | Outpatient (CLI) | payer OTHER | LOC: M RAD 10:08 | PROVIDERS: ATTEND Nurse Practitioner Adult Health | DX: R13.13 Dysphagia, pharyngeal phase (principal); E04.2 Nontoxic multinodular goiter ==

== ENCOUNTER → 2022-01-16 | Outpatient (CLI) | payer OTHER ==
[2022-01-16 14:48] LABS: ALBUMIN 3.9 GM/DL (3.2-5.2); ALT/SGPT 21 U/L (12-78); BILIRUBIN,TOTAL 0.6 MG/DL (0.2-1.0); BLOOD UREA NITROGEN 13 MG/DL (7-18); CARBON DIOXIDE LEVEL 29 MEQ/L (21-32); CHLORIDE LEVEL 105 MEQ/L (98-107); CHOLESTEROL LEVEL 148 MG/DL (<200); CHOLESTEROL RISK RATIO 3.441 (<5); GLOMERULAR FILTRATION RATE > 60.0 (>60); GLUCOSE, FASTING 75 MG/DL (70-100); HDL CHOLESTEROL 43 MG/DL (>40); LDL CHOLESTEROL 89 MG/DL (<100); NON-HDL-C 105 MG/DL; POTASSIUM SERUM 4.3 MEQ/L (3.5-5.1); SODIUM LEVEL 138 MEQ/L (136-145); TOTAL PROTEIN 6.7 GM/DL (6.4-8.2); TRIGLYCERIDES LEVEL 80 MG/DL (<150)
== END ==
LOC: M PLALAB 09:44
PROVIDERS: ATTEND Physician Assistant
DX: E78.00 Pure hypercholesterolemia, unspecified (principal)

== ENCOUNTER → 2022-01-23 | Outpatient (REF) | payer OTHER | LOC: M LAB REF 17:03 | PROVIDERS: ATTEND Family Medicine | DX: R39.15 Urgency of urination (principal) ==

== ENCOUNTER → 2022-02-20 | Outpatient (REF) | payer OTHER | LOC: M LAB REF 15:12 | PROVIDERS: ATTEND Internal Medicine Endocrinology, Diabetes & Metabolism | DX: E04.1 Nontoxic single thyroid nodule (principal) ==

== ENCOUNTER → 2022-04-18 | Outpatient (CLI) | payer OTHER ==
[~2022-04-18] MED LIST changes: +PROHANCE 279.3MG/ML 5ML VIAL As Ordered ONE
== END ==
LOC: M RAD 15:01
PROVIDERS: ATTEND Family Medicine
DX: R92.8 Other abnormal and inconclusive findings on diagnostic imaging of breast (principal)
CPT/HCPCS: 77049; A9576

== ENCOUNTER → 2022-07-05 | Outpatient (CLI) | payer OTHER ==
[~2022-07-05] MED LIST changes: -PROHANCE 279.3MG/ML 5ML VIAL As Ordered ONE; +ROSU10TA6 PO
== END ==
LOC: M LABSMTC 10:11
PROVIDERS: ATTEND Anesthesiology
DX: Z11.52 Encounter for screening for COVID-19 (principal)

== ENCOUNTER 2022-07-10 11:49 | Day surgery (SDC) | payer OTHER ==
[~2022-07-10] VITALS: Ht 154.9 cm; Wt 55.7 kg
[~2022-07-10 11:49] MED LIST changes: +NS 1,000 ML IV ONE
[2022-07-10] MEDS ORDERED: LIDOCAINE 2% 100MG/5ML SDV (FOR ANES.) As Ordered ONE (13:47)
[2022-07-10] MEDS ORDERED: propofoL 200 MG/20 ML VIAL As Ordered ONE (13:47)
[2022-07-10 14:33] VITALS: BP 132/74
== END 2022-07-10 14:34 | disposition home or self-care (01) ==
LOC: M OPP 11:49
PROVIDERS: ATTEND Internal Medicine Gastroenterology
DX: K21.00 Gastro-esophageal reflux disease with esophagitis, without bleeding (principal); K29.70 Gastritis, unspecified, without bleeding; I10 Essential (primary) hypertension; F41.9 Anxiety disorder, unspecified; Z79.02 Long term (current) use of antithrombotics/antiplatelets; Z79.899 Other long term (current) drug therapy; Z80.3 Family history of malignant neoplasm of breast; Z80.41 Family history of malignant neoplasm of ovary

== ENCOUNTER → 2022-08-07 | Outpatient (CLI) | payer OTHER ==
[~2022-08-07] MED LIST changes: -NS 1,000 ML IV ONE
== END ==
LOC: M RAD 11:22
PROVIDERS: ATTEND Internal Medicine Gastroenterology
DX: R11.2 Nausea with vomiting, unspecified (principal); K30 Functional dyspepsia
CPT/HCPCS: 78264; A9541

== ENCOUNTER → 2022-08-24 | Outpatient (CLI) | payer OTHER ==
[2022-08-24 13:08] LABS: BASO % 0.6 % (0.0-1.0); EOS # 0.1 10^3/uL (0.0-0.5); EOS % 1.1 % (0.0-3.0); HEMOGLOBIN 13.2 g/dl (12.0-15.5); LYMPH # 1.9 10^3/uL (1.5-5.0); LYMPH % 40.4 % (24.0-44.0); MEAN CORPUSCULAR HEMOGLOBIN 30.8 pg (27.0-33.0); MEAN CORPUSCULAR VOLUME 93.2 fl (80.0-96.0); MONO # 0.3 10^3/uL (0.0-0.8); MONO % 6.6 % (2.0-8.0); NEUTROPHILS # 2.4 10^3/uL (1.5-8.5); NEUTROPHILS % 51.1 % (36.0-66.0); PLATELET COUNT, AUTOMATED 161 10^3/uL (150-450); RED BLOOD COUNT 4.29 10^6/uL (4.00-5.40); WHITE BLOOD COUNT 4.7 10^3/uL (4.0-10.0)
[2022-08-24 14:22] LABS: ALBUMIN 4.1 GM/DL (3.2-5.2); ALT/SGPT 18 U/L (12-78); BILIRUBIN,TOTAL 0.4 MG/DL (0.2-1.0); BLOOD UREA NITROGEN 15 MG/DL (7-18); CALCIUM LEVEL 9.1 MG/DL (8.5-10.1); CARBON DIOXIDE LEVEL 30 MEQ/L (21-32); CHLORIDE LEVEL 106 MEQ/L (98-107); CHOLESTEROL LEVEL 125 MG/DL (<200); CHOLESTEROL RISK RATIO 2.717 (<5); CREATININE FOR GFR 0.74 MG/DL (0.55-1.30); GLOMERULAR FILTRATION RATE > 60.0 (>58); GLUCOSE, FASTING 87 MG/DL (70-100); HDL CHOLESTEROL 46 MG/DL (>40); LDL CHOLESTEROL 63 MG/DL (<100); NON-HDL-C 79 MG/DL; SODIUM LEVEL 140 MEQ/L (136-145); TOTAL PROTEIN 7.1 GM/DL (6.4-8.2); TRIGLYCERIDES LEVEL 79 MG/DL (<150)
[2022-08-24 14:46] LABS: TOTAL 25(OH) VITAMIN D 37.4 NG/ML (30.0-100.0)
[2022-08-25 15:22] LABS: VITAMIN B12 LEVEL 405 PG/ML (247-911)
[2022-08-27 04:10] LABS: FOLATE 16.2 ng/mL (>3.0)
== END ==
LOC: M PLALAB 08:41
PROVIDERS: ATTEND Family Medicine
DX: E78.00 Pure hypercholesterolemia, unspecified (principal)

== ENCOUNTER → 2022-09-11 | Outpatient (REF) | payer OTHER | LOC: M LAB REF 17:18 | PROVIDERS: ATTEND Internal Medicine Endocrinology, Diabetes & Metabolism | DX: E04.1 Nontoxic single thyroid nodule (principal) ==

== ENCOUNTER → 2022-09-18 | Outpatient (REF) | payer OTHER | LOC: M LAB REF 17:54 | PROVIDERS: ATTEND Nurse Practitioner Adult Health | DX: R35.0 Frequency of micturition (principal) ==

== ENCOUNTER → 2022-10-23 | Outpatient (CLI) | payer OTHER | LOC: M RAD 15:02 | PROVIDERS: ATTEND Nurse Practitioner Adult Health | DX: N94.19 Other specified dyspareunia (principal) ==

== ENCOUNTER → 2023-01-11 | Outpatient (CLI) | payer OTHER ==
[2023-01-11 13:33] LABS: ALKALINE PHOSPHATASE 40 U/L (46-116); ALT/SGPT 14 U/L (7.0-40); AST/SGOT 10 U/L (<34); BILIRUBIN,TOTAL 0.6 MG/DL (0.3-1.2); BLOOD UREA NITROGEN 17 MG/DL (9-23); CALCIUM LEVEL 9.4 MG/DL (8.5-10.1); CARBON DIOXIDE LEVEL 30 MMOL/L (20-31); CHLORIDE LEVEL 105 MMOL/L (98-107); CHOLESTEROL LEVEL 216 MG/DL (<200); CHOLESTEROL RISK RATIO 4.67 (<5); CREATININE FOR GFR 0.77 MG/DL (0.55-1.30); GLOMERULAR FILTRATION RATE > 60.0 (>58); GLUCOSE, FASTING 85 MG/DL (60-100); HDL CHOLESTEROL 46.2 MG/DL (>40); LDL CHOLESTEROL 149.2 MG/DL (<100); NON-HDL-C 170 MG/DL; POTASSIUM SERUM 4.6 MMOL/L (3.5-5.1); SODIUM LEVEL 140 MMOL/L (136-145); TOTAL PROTEIN 6.6 G/DL (5.7-8.2); TRIGLYCERIDES LEVEL 103 MG/DL (<150)
== END ==
LOC: M PLALAB 08:45
PROVIDERS: ATTEND Physician Assistant
DX: E78.00 Pure hypercholesterolemia, unspecified (principal)

== ENCOUNTER → 2023-01-15 | Outpatient (REF) | payer OTHER ==
[2023-01-15 14:03] LABS: APPEARANCE, URINE HAZY (CLEAR); BACTERIA, URINE AUTO NEGATIVE (NEGATIVE); BILIRUBIN, URINE AUTO NEGATIVE (NEGATIVE); BLOOD, URINE BLOOD NEGATIVE (NEGATIVE); COLOR, URINE YELLOW (YELLOW); GLUCOSE, URINE (UA) AUTO NEGATIVE (NEGATIVE); KETONE, URINE AUTO NEGATIVE (NEGATIVE); LEUKOCYTE ESTERASE, URINE AUTO 1+ (NEGATIVE); MUCUS, URINE SMALL (NEGATIVE); NITRITE, URINE AUTO NEGATIVE (NEGATIVE); PROTEIN, URINE AUTO NEGATIVE (NEGATIVE); RBC, URINE AUTO 2 /HPF (0-3); SPECIFIC GRAVITY URINE AUTO 1.028 (1.002-1.035); SQUAMOUS EPITHELIAL CELL UR AU 11 /HPF (0-6); UROBILINOGEN, URINE AUTO 0.2 mg/dL (0.0-2.0); WBC, URINE AUTO 5 /HPF (0-3)
== END ==
LOC: M SMT 13:08
PROVIDERS: ATTEND Physician Assistant
DX: N32.81 Overactive bladder (principal)

== ENCOUNTER → 2023-06-25 | Outpatient (CLI) | payer OTHER | LOC: M WHC 08:33 | PROVIDERS: ATTEND Physician Assistant | DX: Z12.31 Encounter for screening mammogram for malignant neoplasm of breast (principal); Z80.3 Family history of malignant neoplasm of breast; Z80.41 Family history of malignant neoplasm of ovary ==

== ENCOUNTER 2023-10-18 09:02 | Emergency (ER) | payer OTHER ==
[~2023-10-18] VITALS: Ht 154.9 cm; Wt 62.3 kg
[2023-10-18] MEDS ORDERED: ONDA-83 (09:13)
[2023-10-18] MEDS ORDERED: RIZA10TA58 (09:13)
[2023-10-18] MEDS ORDERED: ELINTAB (09:13)
[2023-10-18] MEDS ORDERED: FOLI1TAB11 (09:13)
[2023-10-18] MEDS ORDERED: B-1100TA2 (09:13)
[2023-10-18] MEDS ORDERED: ALPR0.25 (09:13)
[2023-10-18 09:29] LABS: BASO % 0.5 % (0.0-1.0); EOS # 0.1 10^3/uL (0.0-0.5); EOS % 2.1 % (0.0-3.0); HEMOGLOBIN 13.4 g/dl (12.0-15.5); LYMPH # 1.8 10^3/uL (1.5-5.0); LYMPH % 40.3 % (24.0-44.0); MEAN CORPUSCULAR HEMOGLOBIN 30.8 pg (27.0-33.0); MEAN CORPUSCULAR HGB CONC 33.5 g/dl (32.0-36.5); MONO # 0.3 10^3/uL (0.0-0.8); MONO % 6.5 % (2.0-8.0); NEUTROPHILS # 2.2 10^3/uL (1.5-8.5); NEUTROPHILS % 50.4 % (36.0-66.0); PLATELET COUNT, AUTOMATED 158 10^3/uL (150-450); RED BLOOD COUNT 4.35 10^6/uL (4.00-5.40); WHITE BLOOD COUNT 4.3 10^3/uL (4.0-10.0)
[2023-10-18 09:55] LABS: BLOOD UREA NITROGEN 11 MG/DL (9-23); CALCIUM LEVEL 8.8 MG/DL (8.5-10.1); CARBON DIOXIDE LEVEL 27 MMOL/L (20-31); CHLORIDE LEVEL 106 MMOL/L (98-107); CREATININE FOR GFR 0.66 MG/DL (0.55-1.30); GLOMERULAR FILTRATION RATE > 60.0 (>58); GLUCOSE, FASTING 93 MG/DL (60-100); POTASSIUM SERUM 3.9 MMOL/L (3.5-5.1); SODIUM LEVEL 140 MMOL/L (136-145)
[2023-10-18] MEDS ORDERED: NS 1,000 ML IV ONE (11:35)
[2023-10-18] MEDS ORDERED: MECLIZINE 25 MG TABLET PO ONE (11:35)
[2023-10-18] MEDS ORDERED: ONDANSETRON 4MG 2ML VIAL IV ONE (11:35)
[2023-10-18 11:57] LABS: C REACTIVE PROTEIN QUANTITATIV < 0.40 MG/DL (<1.0); CK-MB VALUE MASS < 1.0 NG/ML (<3.6); ETHYL ALCOHOL (ETHANOL) < 0.003 % (0.000-0.010)
[2023-10-18 11:59] LABS: CPK CREATINE PHOSPHOKINASE 107 U/L (34-145); MB/CK RELATIVE INDEX 0.93 (< OR =4)
[2023-10-18 12:01] LABS: FREE T4 0.88 NG/DL (0.89-1.76); THYROID STIMULATING HORMONE 3.578 uIU/ML (0.55-4.78)
[2023-10-18 12:02] LABS: ERYTHROCYTE SEDIMENTATION RATE 2 mm/hr (0-20)
[2023-10-18 12:36] LABS: AMPHETAMINES LEVEL URINE NEGATIVE (NEGATIVE); BARBITURATES URINE NEGATIVE (NEGATIVE); BENZODIAZEPINES URINE NEGATIVE (NEGATIVE); CANNABINOIDS URINE NEGATIVE (NEGATIVE); COCAINE METABOLITE URINE NEGATIVE (NEGATIVE); INR 1.01; METHADONE URINE NEGATIVE (NEGATIVE); OPIATES URINE NEGATIVE (NEGATIVE); PHENCYCLIDINE URINE NEGATIVE (NEGATIVE)
[2023-10-18 12:37] LABS: PARTIAL THROMBOPLASTIN TIME 25.7 SECONDS (24.8-34.2)
[2023-10-18 12:40] LABS: D-DIMER QUANT 0.29 ug/mL (<0.5)
[2023-10-18 13:13] VITALS: BP 139/80; TEMP 98.5; O2SAT 100
[2023-10-18] MEDS ORDERED: MECL-209 PO (18:27)
[2023-10-18] MEDS ORDERED: ONDA4TAB6 PO (18:27)
== END 2023-10-18 13:18 | disposition home or self-care (01) ==
LOC: M ED 09:02
DX: R42 Dizziness and giddiness (principal); I10 Essential (primary) hypertension; E78.5 Hyperlipidemia, unspecified; G43.909 Migraine, unspecified, not intractable, without status migrainosus; K21.9 Gastro-esophageal reflux disease without esophagitis; M19.90 Unspecified osteoarthritis, unspecified site; Z79.3 Long term (current) use of hormonal contraceptives; Z87.891 Personal history of nicotine dependence; Z82.0 Family history of epilepsy and other diseases of the nervous system
CPT/HCPCS: 70450; 72125; 80048; 80307; 82077; 82550; 82553; 83735; 84439; 84443; 84702; 85025; 85379; 85610; 85652; 85730; 86140; 93005; 96374; 99284; J2405

== ENCOUNTER → 2023-12-24 | Outpatient (CLI) | payer OTHER ==
[~2023-12-24] MED LIST changes: +ALPR0.25; +B-1100TA2; +ELINTAB; +FOLI1TAB11; +MECL-209 PO; +ONDA-83; +ONDA4TAB6 PO; +RIZA10TA58
[2023-12-24 13:36] LABS: BASO % 0.5 % (0.0-1.0); EOS # 0.1 10^3/uL (0.0-0.5); EOS % 1.4 % (0.0-3.0); HEMATOCRIT 40.6 % (36.0-47.0); HEMOGLOBIN 13.4 g/dl (12.0-15.5); LYMPH # 1.1 10^3/uL (1.5-5.0); LYMPH % 29.4 % (24.0-44.0); MEAN CORPUSCULAR HEMOGLOBIN 30.9 pg (27.0-33.0); MEAN CORPUSCULAR VOLUME 93.8 fl (80.0-96.0); MONO # 0.4 10^3/uL (0.0-0.8); MONO % 11.7 % (2.0-8.0); NEUTROPHILS # 2.1 10^3/uL (1.5-8.5); NEUTROPHILS % 56.7 % (36.0-66.0); PLATELET COUNT, AUTOMATED 150 10^3/uL (150-450); RED BLOOD COUNT 4.33 10^6/uL (4.00-5.40); WHITE BLOOD COUNT 3.7 10^3/uL (4.0-10.0)
[2023-12-24 14:11] LABS: ALBUMIN 3.8 G/DL (3.2-5.2); ALKALINE PHOSPHATASE 42 U/L (46-116); ALT/SGPT 13 U/L (7.0-40); AST/SGOT 11 U/L (<34); BILIRUBIN,TOTAL 0.3 MG/DL (0.3-1.2); BLOOD UREA NITROGEN 15 MG/DL (9-23); CARBON DIOXIDE LEVEL 29 MMOL/L (20-31); CHLORIDE LEVEL 106 MMOL/L (98-107); CHOLESTEROL LEVEL 123 MG/DL (<200); CHOLESTEROL RISK RATIO 2.76 (<5); CREATININE FOR GFR 0.78 MG/DL (0.55-1.30); GLOMERULAR FILTRATION RATE > 60.0 (>58); GLUCOSE, FASTING 82 MG/DL (60-100); HDL CHOLESTEROL 44.5 MG/DL (>40); LDL CHOLESTEROL 63.1 MG/DL (<100); NON-HDL-C 78.5 MG/DL; POTASSIUM SERUM 4.6 MMOL/L (3.5-5.1); SODIUM LEVEL 139 MMOL/L (136-145); TOTAL PROTEIN 6.8 G/DL (5.7-8.2); TRIGLYCERIDES LEVEL 77 MG/DL (<150)
[2023-12-24 14:12] LABS: FREE T4 1.02 NG/DL (0.89-1.76)
== END ==
LOC: M PLALAB 09:08
PROVIDERS: ATTEND Physician Assistant
DX: E78.00 Pure hypercholesterolemia, unspecified (principal); H81.13 Benign paroxysmal vertigo, bilateral

== ENCOUNTER → 2024-01-28 | Outpatient (CLI) | payer OTHER ==
[~2024-01-28] MED LIST changes: +PROHANCE 279.3MG/ML 15ML VIAL ONE
== END ==
LOC: M PLAIMG 09:40
PROVIDERS: ATTEND Physician Assistant
DX: Z12.39 Encounter for other screening for malignant neoplasm of breast (principal); R92.323 Mammographic fibroglandular density, bilateral breasts
CPT/HCPCS: 77049; A9576

== ENCOUNTER → 2024-02-19 | Outpatient (CLI) | payer OTHER ==
[~2024-02-19] MED LIST changes: +E-Z-GAS II EFFERVESCENT PACKET (SODIUM BICARB./CITRIC ACID/SIMETHICONE) As Ordered ONE; +E-Z-HD 98% w/w 340GM SUSP BTL As Ordered ONE; +E-Z-PAQUE 96% w/w SUSP 176GM BTL As Ordered ONE; -PROHANCE 279.3MG/ML 15ML VIAL ONE
== END ==
LOC: M RAD 08:10
PROVIDERS: ATTEND Internal Medicine Gastroenterology
DX: R11.2 Nausea with vomiting, unspecified (principal); K21.9 Gastro-esophageal reflux disease without esophagitis; K31.7 Polyp of stomach and duodenum

== ENCOUNTER → 2024-05-07 | Outpatient (CLI) | payer OTHER ==
[~2024-05-07] MED LIST changes: -E-Z-GAS II EFFERVESCENT PACKET (SODIUM BICARB./CITRIC ACID/SIMETHICONE) As Ordered ONE; -E-Z-HD 98% w/w 340GM SUSP BTL As Ordered ONE; -E-Z-PAQUE 96% w/w SUSP 176GM BTL As Ordered ONE; +ONDA-282 PO; -ONDA4TAB6 PO; -ROSU10TA6 PO; +ROSU10TA61 PO
== END ==
LOC: M RAD 08:12
PROVIDERS: ATTEND Physician Assistant
DX: R22.1 Localized swelling, mass and lump, neck (principal)

== ENCOUNTER → 2024-07-07 | Outpatient (CLI) | payer OTHER | LOC: M WHC 13:31 | PROVIDERS: ATTEND Physician Assistant | DX: Z12.31 Encounter for screening mammogram for malignant neoplasm of breast (principal) ==

== ENCOUNTER 2024-07-19 18:00 | Emergency (ER) | payer OTHER ==
[~2024-07-19] VITALS: Ht 154.9 cm; Wt 59.4 kg
[2024-07-19 18:01] VITALS: TEMP 97.6
[2024-07-19 18:46] LABS: BASO % 0.4 % (0.0-1.0); EOS # 0.1 10^3/uL (0.0-0.5); EOS % 1.3 % (0.0-3.0); HEMATOCRIT 37.1 % (36.0-47.0); HEMOGLOBIN 12.8 g/dl (12.0-15.5); LYMPH % 37.7 % (24.0-44.0); MEAN CORPUSCULAR HEMOGLOBIN 31.3 pg (27.0-33.0); MEAN CORPUSCULAR HGB CONC 34.5 g/dl (32.0-36.5); MEAN CORPUSCULAR VOLUME 90.7 fl (80.0-96.0); MONO # 0.3 10^3/uL (0.0-0.8); MONO % 6.3 % (2.0-8.0); NEUTROPHILS # 2.8 10^3/uL (1.5-8.5); NEUTROPHILS % 54.1 % (36.0-66.0); PLATELET COUNT, AUTOMATED 152 10^3/uL (150-450); RED BLOOD COUNT 4.09 10^6/uL (4.00-5.40); WHITE BLOOD COUNT 5.2 10^3/uL (4.0-10.0)
[2024-07-19 19:01] LABS: INR 1.12; PROTHROMBIN TIME 14.1 SECONDS (12.5-14.5)
[2024-07-19 19:04] LABS: LIPASE 42 U/L (12-53)
[2024-07-19 19:06] LABS: ALBUMIN 4.1 G/DL (3.2-5.2); ALKALINE PHOSPHATASE 47 U/L (46-116); ALT/SGPT 15 U/L (7.0-40); AST/SGOT 8 U/L (<34); BILIRUBIN,DIRECT 0.1 MG/DL (<0.4); BILIRUBIN,TOTAL 0.4 MG/DL (0.3-1.2); BLOOD UREA NITROGEN 10 MG/DL (9-23); CARBON DIOXIDE LEVEL 27 MMOL/L (20-31); CHLORIDE LEVEL 104 MMOL/L (98-107); CK-MB VALUE MASS < 1.0 NG/ML (<3.6); CPK CREATINE PHOSPHOKINASE 94 U/L (34-145); CREATININE FOR GFR 0.78 MG/DL (0.55-1.30); GLOMERULAR FILTRATION RATE > 60.0 (>58); GLUCOSE, FASTING 115 MG/DL (60-100); MB/CK RELATIVE INDEX 1.06 (< OR =4); POTASSIUM SERUM 3.7 MMOL/L (3.5-5.1); SODIUM LEVEL 137 MMOL/L (136-145); TOTAL PROTEIN 6.6 G/DL (5.7-8.2)
[2024-07-19 19:13] LABS: HCG, SERUM QUALITATIVE NEGATIVE (NEGATIVE)
[2024-07-19] MEDS: ONDANSETRON 4MG 2ML VIAL IV ONE (19:52)
[2024-07-19] MEDS: FAMOTIDINE IV BAG 20 MG in IV 1 EA IV ONE (19:52)
[2024-07-19] MEDS: SUCRALFATE 1 GM TAB PO ONE (19:52)
[2024-07-19] MEDS: PANTOPRAZOLE 40MG VIAL IV ONE (19:52)
[2024-07-19] MEDS: NS 1,000 ML IV ONE (19:53)
[2024-07-19] MEDS ORDERED: FAMO1TAB11 PO (21:06)
[2024-07-19] MEDS ORDERED: ONDA-282 PO (21:06)
[2024-07-19 21:45] VITALS: O2SAT 100
[2024-07-19 21:46] VITALS: BP 146/70
== END 2024-07-19 21:59 | disposition home or self-care (01) ==
LOC: M ED 18:00
DX: R07.89 Other chest pain (principal); R10.13 Epigastric pain; K21.9 Gastro-esophageal reflux disease without esophagitis; E78.5 Hyperlipidemia, unspecified; F17.200 Nicotine dependence, unspecified, uncomplicated; Z79.3 Long term (current) use of hormonal contraceptives; Z79.899 Other long term (current) drug therapy
CPT/HCPCS: 74021; 80048; 80076; 82550; 82553; 83690; 84484; 84703; 85025; 85610; 93005; 96361; 96374; 96375; 99284; J2405; J2470; S0028

== ENCOUNTER 2024-08-11 17:41 | Emergency (ER) | payer OTHER ==
[~2024-08-11] VITALS: Ht 154.9 cm; Wt 59.1 kg
[~2024-08-11 17:41] MED LIST changes: +FAMO1TAB11 PO
[2024-08-11 17:50] VITALS: TEMP 96.9; O2SAT 100
[2024-08-11] MEDS: METOCLOPRAMIDE INJ 10MG/2ML VIAL IV ONE (19:43)
[2024-08-11] MEDS: NS 1,000 ML IV ONE (19:43)
[2024-08-11] MEDS: KETOROLAC 30 MG/ML 1ML VIAL IV ONE (19:46)
[2024-08-11 20:08] LABS: BASO % 0.3 % (0.0-1.0); EOS % 0.6 % (0.0-3.0); HEMATOCRIT 37.3 % (36.0-47.0); HEMOGLOBIN 12.8 g/dl (12.0-15.5); LYMPH # 2.3 10^3/uL (1.5-5.0); LYMPH % 35.6 % (24.0-44.0); MEAN CORPUSCULAR HEMOGLOBIN 31.4 pg (27.0-33.0); MEAN CORPUSCULAR HGB CONC 34.3 g/dl (32.0-36.5); MEAN CORPUSCULAR VOLUME 91.6 fl (80.0-96.0); MONO # 0.4 10^3/uL (0.0-0.8); MONO % 6.1 % (2.0-8.0); NEUTROPHILS # 3.7 10^3/uL (1.5-8.5); NEUTROPHILS % 57.2 % (36.0-66.0); PLATELET COUNT, AUTOMATED 169 10^3/uL (150-450); RED BLOOD COUNT 4.07 10^6/uL (4.00-5.40); WHITE BLOOD COUNT 6.4 10^3/uL (4.0-10.0)
[2024-08-11 20:25] LABS: CK-MB VALUE MASS < 1.0 NG/ML (<3.6)
[2024-08-11 20:27] LABS: ALBUMIN 4.2 G/DL (3.2-5.2); ALKALINE PHOSPHATASE 44 U/L (46-116); ALT/SGPT 12 U/L (7.0-40); AST/SGOT < 8 U/L (<34); BILIRUBIN,DIRECT 0.2 MG/DL (<0.4); BILIRUBIN,TOTAL 0.5 MG/DL (0.3-1.2); BLOOD UREA NITROGEN 13 MG/DL (9-23); CALCIUM LEVEL 9.2 MG/DL (8.5-10.1); CARBON DIOXIDE LEVEL 28 MMOL/L (20-31); CHLORIDE LEVEL 105 MMOL/L (98-107); CPK CREATINE PHOSPHOKINASE 101 U/L (34-145); GLOMERULAR FILTRATION RATE > 60.0 (>58); GLUCOSE, FASTING 77 MG/DL (60-100); MB/CK RELATIVE INDEX 0.99 (< OR =4); POTASSIUM SERUM 3.5 MMOL/L (3.5-5.1); SODIUM LEVEL 140 MMOL/L (136-145)
[2024-08-11 21:15] VITALS: BP 161/86
== END 2024-08-11 21:41 | disposition home or self-care (01) ==
LOC: M ED 17:41
DX: G43.909 Migraine, unspecified, not intractable, without status migrainosus (principal); I10 Essential (primary) hypertension; E78.5 Hyperlipidemia, unspecified; K21.9 Gastro-esophageal reflux disease without esophagitis; Z79.83 Long term (current) use of bisphosphonates; Z79.899 Other long term (current) drug therapy
CPT/HCPCS: 70450; 80053; 82248; 82550; 82553; 84484; 85025; 93005; 96374; 96375; 99284; J1100; J1885; J2765

== ENCOUNTER → 2024-09-17 | Outpatient (CLI) | payer OTHER | LOC: M RAD 07:27 | PROVIDERS: ATTEND Family Medicine | DX: I10 Essential (primary) hypertension (principal); I70.1 Atherosclerosis of renal artery ==

== ENCOUNTER → 2024-10-26 | Outpatient (REF) | payer OTHER ==
[~2024-10-26] MED LIST changes: -ALPR0.25; +ALPR0.25 PO; -B-1100TA2; +B-1100TA2 PO; -ELINTAB; +ELINTAB PO; +ERGO500029 PO; -FOLI1TAB11; +FOLI1TAB11 PO; +LORA-1041 PO; +MECL-86 PO; +ONDA-83 PO; +SUCR1ORA PO; +VONO20TA PO; +ZOLP10TA2 PO
== END ==
LOC: M LAB REF 09:50
PROVIDERS: ATTEND Registered Nurse
DX: R31.9 Hematuria, unspecified (principal)

== ENCOUNTER → 2024-10-27 | Outpatient (CLI) | payer OTHER ==
[2024-10-27 15:55] LABS: BASO % 0.4 % (0.0-1.0); EOS # 0.1 10^3/uL (0.0-0.5); EOS % 1.3 % (0.0-3.0); HEMATOCRIT 37.4 % (36.0-47.0); HEMOGLOBIN 12.6 g/dl (12.0-15.5); LYMPH # 1.8 10^3/uL (1.5-5.0); LYMPH % 33.8 % (24.0-44.0); MEAN CORPUSCULAR HGB CONC 33.7 g/dl (32.0-36.5); MEAN CORPUSCULAR VOLUME 92.1 fl (80.0-96.0); MONO # 0.4 10^3/uL (0.0-0.8); MONO % 7.5 % (2.0-8.0); NEUTROPHILS % 56.8 % (36.0-66.0); PLATELET COUNT, AUTOMATED 193 10^3/uL (150-450); RED BLOOD COUNT 4.06 10^6/uL (4.00-5.40); WHITE BLOOD COUNT 5.4 10^3/uL (4.0-10.0)
[2024-10-27 16:27] LABS: ALBUMIN 3.6 G/DL (3.2-5.2); ALKALINE PHOSPHATASE 40 U/L (35-104); ALT/SGPT 12 U/L (7.0-40); AST/SGOT < 8 U/L (<34); BILIRUBIN,TOTAL 0.3 MG/DL (0.3-1.2); BLOOD UREA NITROGEN 11 MG/DL (9-23); CALCIUM LEVEL 8.9 MG/DL (8.5-10.1); CARBON DIOXIDE LEVEL 28 MMOL/L (20-31); CHLORIDE LEVEL 106 MMOL/L (98-107); CREATININE FOR GFR 0.62 MG/DL (0.55-1.30); GLOMERULAR FILTRATION RATE > 60.0 (>58); GLUCOSE, FASTING 101 MG/DL (60-100); MAGNESIUM LEVEL 2.2 MG/DL (1.8-2.4); SODIUM LEVEL 140 MMOL/L (136-145); TOTAL PROTEIN 6.8 G/DL (5.7-8.2)
== END ==
LOC: M LAB 15:23
PROVIDERS: ATTEND Registered Nurse
DX: K52.9 Noninfective gastroenteritis and colitis, unspecified (principal)

== ENCOUNTER → 2024-10-27 | Outpatient (CLI) | payer OTHER | LOC: M WUC 14:51 | PROVIDERS: ATTEND Registered Nurse | DX: Z53.9 Procedure and treatment not carried out, unspecified reason (principal) ==

== ENCOUNTER → 2024-10-27 | Outpatient (REF) | payer OTHER | LOC: M LAB REF 10:09 | PROVIDERS: ATTEND Registered Nurse | DX: K52.9 Noninfective gastroenteritis and colitis, unspecified (principal) ==

== ENCOUNTER 2024-10-28 10:09 | Day surgery (SDC) | payer OTHER ==
[~2024-10-28] VITALS: Ht 154.9 cm; Wt 59.5 kg
[2024-10-28] MEDS ORDERED: propofoL 200 MG/20 ML VIAL As Ordered ONE (12:21)
[2024-10-28] MEDS ORDERED: LIDOCAINE 2% 100MG/5ML SDV (FOR ANES.) As Ordered ONE (12:21)
[2024-10-28] MEDS ORDERED: fentaNYL 100 MCG/2 ML INJECTION As Ordered ONE (12:22)
[2024-10-28 12:41] VITALS: TEMP 97.6
[2024-10-28 13:11] VITALS: BP 131/69; O2SAT 100
== END 2024-10-28 13:15 | disposition home or self-care (01) ==
LOC: M OPP 10:09
PROVIDERS: ATTEND Internal Medicine Gastroenterology
DX: R93.3 Abnormal findings on diagnostic imaging of other parts of digestive tract (principal); K31.7 Polyp of stomach and duodenum; K31.84 Gastroparesis; I10 Essential (primary) hypertension; I72.9 Aneurysm of unspecified site; F41.9 Anxiety disorder, unspecified
CPT/HCPCS: 43239; 43251; 88305; J3010

== ENCOUNTER → 2024-12-04 | Outpatient (CLI) | payer OTHER ==
[~2024-12-04] MED LIST changes: +ISOVUE-370 76% 100ML VIAL As Ordered ONE
== END ==
LOC: M RAD 09:09
PROVIDERS: ATTEND Internal Medicine Nephrology
DX: R31.9 Hematuria, unspecified (principal)
CPT/HCPCS: 74178; Q9967

== ENCOUNTER → 2025-01-22 | Outpatient (CLI) | payer OTHER ==
[~2025-01-22] MED LIST changes: -ISOVUE-370 76% 100ML VIAL As Ordered ONE
[2025-01-22 17:10] LABS: BASO % 0.5 % (0.0-1.0); EOS # 0.1 10^3/uL (0.0-0.5); EOS % 1.4 % (0.0-3.0); HEMATOCRIT 37.8 % (36.0-47.0); HEMOGLOBIN 12.8 g/dl (12.0-15.5); LYMPH # 1.9 10^3/uL (1.5-5.0); LYMPH % 30.9 % (24.0-44.0); MEAN CORPUSCULAR HEMOGLOBIN 31.1 pg (27.0-33.0); MEAN CORPUSCULAR HGB CONC 33.9 g/dl (32.0-36.5); MONO # 0.4 10^3/uL (0.0-0.8); MONO % 6.6 % (2.0-8.0); NEUTROPHILS # 3.8 10^3/uL (1.5-8.5); NEUTROPHILS % 60.4 % (36.0-66.0); PLATELET COUNT, AUTOMATED 194 10^3/uL (150-450); RED BLOOD COUNT 4.11 10^6/uL (4.00-5.40); WHITE BLOOD COUNT 6.2 10^3/uL (4.0-10.0)
[2025-01-22 17:21] LABS: CK-MB VALUE MASS < 1.0 NG/ML (<3.6)
[2025-01-22 17:23] LABS: ALBUMIN 3.9 G/DL (3.2-5.2); ALKALINE PHOSPHATASE 41 U/L (35-104); ALT/SGPT 16 U/L (7.0-40); AST/SGOT < 8 U/L (<34); BILIRUBIN,TOTAL 0.3 MG/DL (0.3-1.2); BLOOD UREA NITROGEN 9 MG/DL (9-23); CALCIUM LEVEL 8.8 MG/DL (8.5-10.1); CARBON DIOXIDE LEVEL 28 MMOL/L (20-31); CHLORIDE LEVEL 106 MMOL/L (98-107); CPK CREATINE PHOSPHOKINASE 86 U/L (34-145); GLOMERULAR FILTRATION RATE > 60.0 (>58); GLUCOSE, FASTING 103 MG/DL (60-100); MB/CK RELATIVE INDEX 1.16 (< OR =4); POTASSIUM SERUM 4.2 MMOL/L (3.5-5.1); SODIUM LEVEL 143 MMOL/L (136-145); TOTAL PROTEIN 6.8 G/DL (5.7-8.2)
[2025-01-22 17:25] LABS: FREE T4 0.96 NG/DL (0.89-1.76); THYROID STIMULATING HORMONE 2.246 uIU/ML (0.55-4.78)
== END ==
LOC: M PLALAB 15:11
PROVIDERS: ATTEND Physician Assistant
DX: R00.2 Palpitations (principal)

== ENCOUNTER → 2025-01-27 | Outpatient (CLI) | payer OTHER ==
[~2025-01-27] MED LIST changes: +ISOVUE-370 76% 100ML VIAL ONE
== END ==
LOC: M PLAIMG 07:30
PROVIDERS: ATTEND Physician Assistant
DX: R09.1 Pleurisy (principal)
CPT/HCPCS: 71275; Q9967

== ENCOUNTER 2025-07-12 17:35 | Emergency (ER) | payer OTHER ==
[~2025-07-12] VITALS: Ht 154.9 cm; Wt 61.0 kg
[~2025-07-12 17:35] MED LIST changes: -ISOVUE-370 76% 100ML VIAL ONE
[2025-07-12] MEDS ORDERED: LORA-1041 (17:55)
[2025-07-12] MEDS ORDERED: BUSP1TAB (17:55)
[2025-07-12] MEDS: NS (Normal Saline) 0.9% 1,000 ML IV ONE (19:54)
[2025-07-12] MEDS: ACETAMINOPHEN *IV* 1,000 MG in IV 1 EA IV ONE (19:55)
[2025-07-12] MEDS: ONDANSETRON 4MG 2ML VIAL IV ONE (20:30)
[2025-07-12 21:37] VITALS: BP 144/75; TEMP 97.3; O2SAT 99
== END 2025-07-12 21:41 | disposition home or self-care (01) ==
LOC: M ED 17:35
DX: R51.9 Headache, unspecified (principal); K21.9 Gastro-esophageal reflux disease without esophagitis; Z86.79 Personal history of other diseases of the circulatory system; Z79.3 Long term (current) use of hormonal contraceptives; Z79.899 Other long term (current) drug therapy
CPT/HCPCS: 70450; 96365; 96366; 96375; 99284; J0131; J2405; J2765

== ENCOUNTER → 2025-07-13 | Outpatient (CLI) | payer OTHER ==
[~2025-07-13] MED LIST changes: +BUSP1TAB; +LORA-1041
== END ==
LOC: M WHC 10:15
PROVIDERS: ATTEND Family Medicine
DX: Z12.31 Encounter for screening mammogram for malignant neoplasm of breast (principal)

== ENCOUNTER → 2025-08-19 | Outpatient (CLI) | payer OTHER ==
[~2025-08-19] MED LIST changes: +ZOLP10TA11 PO; -ZOLP10TA2 PO
== END ==
LOC: M RAD 06:48
PROVIDERS: ATTEND Physician Assistant Surgical
DX: R10.9 Unspecified abdominal pain (principal)
CPT/HCPCS: 76705; 78227; A9537

== ENCOUNTER 2025-10-17 07:28 | Emergency (ER) | payer OTHER ==
[~2025-10-17] VITALS: Ht 154.9 cm; Wt 61.2 kg
[~2025-10-17 07:28] MED LIST changes: -ROSU10TA61 PO; +ROSU10TA90 PO
[2025-10-17] MEDS ORDERED: LO LTAB (07:37)
[2025-10-17 09:42] VITALS: BP 120/59; TEMP 97.9; O2SAT 100
== END 2025-10-17 09:44 | disposition home or self-care (01) ==
LOC: M ED 08:27
DX: M62.831 Muscle spasm of calf (principal); I10 Essential (primary) hypertension; E78.5 Hyperlipidemia, unspecified; K21.9 Gastro-esophageal reflux disease without esophagitis; Z86.79 Personal history of other diseases of the circulatory system

== ENCOUNTER → 2025-10-22 | Outpatient (CLI) | payer OTHER ==
[~2025-10-22] MED LIST changes: +LO LTAB
== END ==
LOC: M WHC 13:58
DX: M79.662 Pain in left lower leg (principal)